=== PATIENT | male | born 1950 | race Caucasian/White ===

== ENCOUNTER 2018-01-02 07:47 | Emergency (ER) | payer OTHER, MEDICAID, SELFPAY ==
[2018-01-02] VITALS (8 sets, daily range): BP systolic 112–145; BP diastolic 54–69; PULSE 62–77; RESP 12–20; TEMP 36.3; O2SAT 97–100; BMI 19.2
--- NOTE | 2018-01-02 08:06 | DI.CT.S_ITS ---
PROCEDURE: CT HEAD/BRAIN WO CON INDICATIONS: dizziness with unsteady on his feet TECHNIQUE: Noncontrast 4.5 mm thick angled axial sections acquired from the foramen magnum to the vertex, with coronal and sagittal reformats. For radiation dose reduction, the following was used: automated exposure control, adjustment of mA and/or kV according to patient size. COMPARISON: [facility], CT, HEAD WITHOUT CONTRAST, 06/14/2014, 15:26. FINDINGS: Image quality: Excellent. CSF spaces: Basal cisterns are patent. No extra-axial fluid collections. The ventricles are symmetric in size and shape. Brain: No intracranial bleeds or masses. There is cerebral volume loss for age, with resultant ventricular and sulcal prominence. There are periventricular and deep white matter chronic small vessel ischemic changes. There is intracranial internal carotid artery atherosclerosis. Skull and face: Calvarium and visualized facial bones appear intact, without suspicious lesions. Sinuses: Visualized sinuses and mastoids are clear. IMPRESSION: No change from the comparison CT from June of 2014. No contraindication to TPA administration is seen. Note: These findings were immediately called to the emergency room physician caring for the patient, at 8:17. Dictated by: Michael Jha M.D. on 01/02/2018 at 8:18 Approved by: Michael Jha M.D. on 01/02/2018 at 8:20
--- NOTE | 2018-01-02 08:17 | ED_ITS ---
HPI - Dizziness General Chief Complaint: Dizziness Stated Complaint: VERTIGO ? Time Seen by Provider: 01/02/18 08:08 Source: patient Mode of arrival: ambulatory Limitations: no limitations History of Present Illness HPI Narrative: patient states that yesterday morning, he woke up from sleep feeling dizzy and nauseated. He states that he felt as though he was listing to the right, and could not get out of bed immediately. He states the symptoms improved, and that he was able to go about his day. However, he does note that he was walking somewhat strangely. He states that he felt fine when he went to bed last night, but then he woke up feeling the same way this morning. This is what prompted him to come to the emergency department. Patient denies focal weakness that is new; he has a history of ongoing left arm weakness and numbness. He is scheduled for left carotid endarterectomy in a couple of weeks. Related Data Home Medications Medication Instructions Recorded Confirmed nitroglycerin [Nitrostat] 0.4 mg SUBLINGUAL PRN #0 09/15/11 01/02/18 Flovent HFA 1 puff INHALATION DIRECTED 01/02/18 01/02/18 albuterol sulfate 1 puff INHALATION PRN PRN 01/02/18 01/02/18 aspirin 81 mg PO DAILY 01/02/18 01/02/18 atorvastatin 80 mg PO BEDTIME 01/02/18 01/02/18 bupropion HCl 150 mg PO BID 01/02/18 01/02/18 Allergies Allergy/AdvReac Type Severity Reaction Status Date / Time lizabeth [LIZABETH] Allergy Unknown Unverified 05/24/17 11:51 Review of Systems Review of Systems All systems reviewed & are unremarkable except as noted in HPI and below Constitutional Denies chills, Denies fever(s), Denies lethargy and Denies weakness Eyes Denies change in vision, Denies eye discharge, Denies irritation and Denies loss of vision ENT Ears, Nose, Mouth, and Throat: Denies change in voice, Reports dizziness, Denies neck pain and Denies sore throat Cardiovascular Denies chest pain, Denies irregular heart rhythm, Denies lightheadedness, Denies palpitations, Denies dyspnea, Denies dyspnea on exertion and Denies orthopnea Respiratory Denies cough, Denies dyspnea, Denies dyspnea on exertion and Denies wheezing Gastrointestinal Gastrointestinal: Denies abdominal pain, Denies change in bowel habits, Denies diarrhea, Denies nausea and Denies vomiting Genitourinary Denies hematuria, Denies flank pain, Denies urinary incontinence and Denies urinary urgency Musculoskeletal Denies neck pain Integumentary/Breasts Denies pruritus, Denies erythema, Denies rash and Denies wounds Neurologic Denies confusion, Reports dizziness, Denies loss of vision and Denies weakness Psychiatric Denies anxiety, Denies confusion, Denies depression, Denies homicidal ideation and Denies suicidal ideation Endocrine Denies palpitations Hematologic/Lymphatic Denies easy bruising Allergic/Immunologic Denies wheezing [facility] Medical History Hyperlipidemia (Acute) TIA (transient ischemic attack) (Acute) Carotid stenosis (Acute) Surgical History No pertinent past surgical history (Acute) Social History Smoking Status: Former smoker Exam Initial Vital Signs Initial Vital Signs: Vital Signs Pulse Rate 68 01/02/18 08:01 Respiratory Rate 18 01/02/18 08:01 Blood Pressure 145/54 H 01/02/18 08:01 Const General: cooperative and well developed Nutritional Appearance: well nourished Orientation: alert, awake, oriented x3 and not confused [facility] Head: normocephalic and atraumatic Ears: external ears normal Nose: external nose normal and No nasal discharge Face and sinus: face symmetric and No dry mucous membranes Mouth: oral mucosae normal and moist mucous membranes Teeth and gingiva: dentition normal Eyes General: appearance normal, both eyes and all related structures Eyelids: eyelids normal Conjunctivae: conjunctivae normal Sclera: sclerae normal Pupils: PERRL EOM: EOM intact bilaterally Neck Neck: normal visual inspection, trachea midline, No lymphadenopathy, No midline deformity and No JVD Lymphatic: No lymphedema Chest Chest: normal inspection of the chest Resp Effort & Inspection: normal respiratory effort, able to speak in complete sentences, no respiratory distress and no use of accessory muscles Auscultation: clear to auscultation bilaterally, no rales, no rhonchi and no wheezes Cardio Rate: regular rate Rhythm: regular rhythm Heart Sounds: no click, no gallops, no murmurs and no rubs Pulses: normal peripheral pulses GI Inspection: non-distended Palpation: soft, no hepatosplenomegaly, No guarding, No pulsatile mass and No tender Back/Spine/Pelvis Back: No CVA tenderness Cervical Spine: cervical ROM normal and No pain with cervical ROM Thoracic/Lumbar Spine: thoracic and lumbar spine normal to inspection Skin General: no rashes or lesions noted, No jaundice and No petechiae Neuro General: alert, oriented x3, gait normal and no focal motor deficits Cranial Nerves: CN's II-XI intact bilaterally Speech: speech normal Motor: muscle tone normal throughout Sensory Exam: no sensory deficits noted Other: NIHSS score=0 at 0825. Extrem General: full ROM, no clubbing, cyanosis or edema, no pedal edema and no calf tenderness Psych Appearance: well kempt Mental Status: mental status grossly normal Attitude: cooperative Thought Content: normal and suicidality Judgment: judgment good Course Course Narrative: Patient was evaluated upon arrival as a code stroke, and sent for CT scan of the brain. This showed no hemorrhage and no new areas of ischemia identified compared with prior study in 2015. Patient was given a dose of aspirin and was worked up with laboratory studies, as well. Nursing staff did report the patient's gait has been worse on arrival than it was at the time of my exam. Orders Ordered: ED Orders 01/02/18 EKG-12 Lead Routine 01/02/18 08:06 CT head/brain wo con Stat Basic Metabolic Panel Stat Complete Blood Count AUTO DIFF Stat Partial Thromboplastin Time Stat Prothrombin Time INR Stat Urine Drug Screen, Rapid Stat Vital Signs - 8 hr 01/02/18 08:01 Pulse Rate 68 Respiratory Rate 18 Blood Pressure 145/54 H MDM - Dizziness Medical Records Attestation: I reviewed the patient's medical records. Lab Data Attestation: I reviewed the patient's lab results. Result diagrams: 01/02/18 08:10 01/02/18 08:10 Lab Results 01/02/18 01/02/18 01/02/18 Range/Units 08:10 08:10 08:10 WBC 9.0 (4.5-11.0) X10^3/uL RBC 4.75 (4.5-5.9) X10^6/uL Hgb 14.6 (13.5-17.5) g/dL Hct 43.5 (41-53) % MCV 91.7 (80-100) fL MCH 30.8 (26-34) PG MCHC 33.6 (30-36) % RDW 14.0 (11.6-14.8) % Plt Count 444 H (150-400) X10^3/uL Neut % (Auto) 65.3 (50-75) % Lymph % (Auto) 21.6 L (25-40) % [place] % (Auto) 6.6 (3-14) % Eos % (Auto) 6.2 H (2-4) % Baso % (Auto) 0.3 (0-2) % Neut # (Auto) 5900 (0056-9581) /uL PT 12.0 (10.1-12.7) SECONDS INR 1.1 (0.9-1.3) APTT 32 (26.4-36.2) SECONDS Sodium 143 (137-145) mmol/L Potassium 4.3 (3.4-5.1) mmol/L Chloride 106 (98-107) mmol/L Carbon Dioxide 26 (22-32) mmol/L BUN 14 (9-20) mg/dL Creatinine 0.80 (0.66-1.25) mg/dL Estimated GFR > 60.0 (>60) mL/min BUN/Creatinine Ratio 17.5 (6-22) Glucose 108 (80-110) mg/dL Calcium 8.9 (8.4-10.2) mg/dL Point of Care Testing Glucose POC 95 Urine Dip Bedside Urine Glucose Negative Bedside Urine Bilirubin - Negative Bedside Urine Ketone - Negative Urine Specific [place] 1.030 Bedside Urine Occult Blood - Negative Bedside Urine pH 6.0 Bedside Urine Protein - Negative Bedside Urine Urobilinogen - Negative Bedside Urine Nitrite - Negative Bedside Urine Leukocytes - Negative Esterase Imaging Data CT scan - head: Attestation: I personally reviewed and interpreted this imaging study as follows: ( Negative) My impression: negative Radiologist's impression: PROCEDURE: CT HEAD/BRAIN WO CON INDICATIONS: dizziness with unsteady on his feet TECHNIQUE: Noncontrast 4.5 mm thick angled axial sections acquired from the foramen magnum to the vertex, with coronal and sagittal reformats. For radiation dose reduction, the following was used: automated exposure control, adjustment of mA and/or kV according to patient size. COMPARISON: [facility], CT, HEAD WITHOUT CONTRAST, 06/14/2014, 15:26. FINDINGS: Image quality: Excellent. CSF spaces: Basal cisterns are patent. No extra-axial fluid collections. The ventricles are symmetric in size and shape. Brain: No intracranial bleeds or masses. There is cerebral volume loss for age , with resultant ventricular and sulcal prominence. There are periventricular and deep white matter chronic small vessel ischemic changes. There is intracranial internal carotid artery atherosclerosis. Skull and face: Calvarium and visualized facial bones appear intact, without suspicious lesions. Sinuses: Visualized sinuses and mastoids are clear. IMPRESSION: No change from the comparison CT from June of 2014. No contraindication to TPA administration is seen. Note: These findings were immediately called to the emergency room physician caring for the patient, at 8:17. Dictated by: Michael Jha M.D. on 01/02/2018 at 8:18 Approved by: Michael Jha M.D. on 01/02/2018 at 8:20 MRI - head: Radiologist's impression: PROCEDURE: MR HEAD/BRAIN WO CON INDICATIONS: stroke TECHNIQUE: Noncontrast axial T1 spin echo, axial T2 fast spin echo, sagittal and axial FLAIR, coronal T2 fast spin echo, axial gradient echo, axial diffusion and ADC through the brain. COMPARISON: None. FINDINGS: Image quality: Excellent. CSF Spaces: Basal cisterns are patent. No extra-axial fluid collections. Ventricles are normal in size and shape. Brain: No intracranial masses or hemorrhage. Henry/white matter interface is normal. Brainstem appears normal. Diffusion-weighted images demonstrate no acute ischemic insult. No chronic ischemic insults. Normal intravascular flow voids are present. Skull and face: Calvarium has normal marrow signal. Orbits appear normal. Sinuses: Sinuses and mastoids are clear except for significant mucosal thickening and mucous retention cysts within the maxillary sinuses bilaterally greater on the left than the right. IMPRESSION: No acute or subacute ischemic injury is found throughout the brain parenchyma. No intracranial hemorrhage is suspected nor is there a mass lesion or mass effect. Note is made of asymmetric bilateral maxillary sinusitis, chronic in appearance and greater on the left than the right. Dictated by: Michael Jha M.D. on 01/02/2018 at 11:41 Approved by: Michael Jha M.D. on 01/02/2018 at 11:42 ECG Data Attestation: I personally reviewed and interpreted this ECG as follows: ( See below) Interpretation: 12 lead EKG performed on January 02, 2018 at 7:56 a.m.: Regular ventricular rhythm with a rate of 66 beats per minute . Interval 129 millisecond QRS duration 93 millisecond QTC interval 400 millisecond axis normal no ST T wave abnormalities in summary, normal sinus rhythm with possible right ventricular conduction delay; borderline EKG as interpreted by ED MD. MDM Narrative Medical decision making narrative: the patient's workup was entirely negative. I have discussed with the patient that it is still very important that he gets his carotid endarterectomy done, as this may be responsible for some of the symptoms he has been having, even though he has not end up with actual ischemia. Patient is already on aspirin and statins and he should continue to take these. We have discussed the usual indications for return. Discharge Plan Departure Patient Disposition: Home Clinical Impression: Dizziness Discharge Date/Time: 01/02/18 12:39 Interventions: ED Discharge Assessment Last Done: 01/02/18 12:40 Instructions: DI for Dizziness-Nonvertigo Activity Restrictions/Additional Instructions: Your labs, EKG, head CT, and MRI of the brain all looked good. There is evidence of old, small strokes, but nothing that is new. Please continue your plans to have your carotid artery surgery in the near future. Please also continue home medications, especially the aspirin and cholesterol medication. Prescriptions: No Action nitroglycerin [Nitrostat] 0.4 MG tablet, sublingual 0.4 mg Sublingual PRN Qty: 0 RF: 0 bupropion HCl 150 mg Tablet Sustained-Release 12 Hr 150 mg PO BID RF: 0 atorvastatin 80 mg Tablet 80 mg PO BEDTIME RF: 0 aspirin 81 mg Tablet,Delayed Release (Dr/Ec) 81 mg PO DAILY RF: 0 Flovent HFA 1 puff Inhalation DIRECTED RF: 0 albuterol sulfate 90 mcg/actuation Hfa Aerosol Inhaler 1 puff Inhalation PRN PRN (Reason: Shortness Of Breath) RF: 0
[2018-01-02 08:22] LABS: Add Manual Diff / Slide Review NO; Basophils Percent Auto 0.3 % (0-2); Eosinophils Percent Auto 6.2 % (2-4); Hematocrit 43.5 % (41-53); Hemoglobin 14.6 g/dL (13.5-17.5); Lymphocytes Percent Auto 21.6 % (25-40); Mean Corpuscular HGB Conc 33.6 % (30-36); Mean Corpuscular Hemoglobin 30.8 PG (26-34); Mean Corpuscular Volume 91.7 fL (80-100); Monocytes Percent Auto 6.6 % (3-14); Neutrophils Absolute Auto 5900 /uL (3000-5900); Neutrophils Percent Auto 65.3 % (50-75); Platelet Count 444 X10^3/uL (150-400); Red Blood Cell Count 4.75 X10^6/uL (4.5-5.9)
[2018-01-02 08:25] LABS: INR 1.1 (0.9-1.3)
[2018-01-02 08:28] LABS: PTT Partial Thromboplastin Tim 32 SECONDS (26.4-36.2)
[2018-01-02 08:29] LABS: BUN Creatinine Ratio 17.5 (6-22); Blood Urea Nitrogen 14 mg/dL (9-20); Calcium 8.9 mg/dL (8.4-10.2); Carbon Dioxide 26 mmol/L (22-32); Chloride 106 mmol/L (98-107); Estimated Glomerular Filt Rate > 60.0 mL/min (>60); Glucose 108 mg/dL (80-110); HEMOLYSIS < 15 (0-50); Potassium 4.3 mmol/L (3.4-5.1); Sodium 143 mmol/L (137-145)
--- NOTE | 2018-01-02 10:04 | DI.MRI.S_ITS ---
PROCEDURE: MR HEAD/BRAIN WO CON INDICATIONS: stroke TECHNIQUE: Noncontrast axial T1 spin echo, axial T2 fast spin echo, sagittal and axial FLAIR, coronal T2 fast spin echo, axial gradient echo, axial diffusion and ADC through the brain. COMPARISON: None. FINDINGS: Image quality: Excellent. CSF Spaces: Basal cisterns are patent. No extra-axial fluid collections. Ventricles are normal in size and shape. Brain: No intracranial masses or hemorrhage. [place]/white matter interface is normal. Brainstem appears normal. Diffusion-weighted images demonstrate no acute ischemic insult. No chronic ischemic insults. Normal intravascular flow voids are present. Skull and face: Calvarium has normal marrow signal. Orbits appear normal. Sinuses: Sinuses and mastoids are clear except for significant mucosal thickening and mucous retention cysts within the maxillary sinuses bilaterally greater on the left than the right. IMPRESSION: No acute or subacute ischemic injury is found throughout the brain parenchyma. No intracranial hemorrhage is suspected nor is there a mass lesion or mass effect. Note is made of asymmetric bilateral maxillary sinusitis, chronic in appearance and greater on the left than the right. Dictated by: Michael Jha M.D. on 01/02/2018 at 11:41 Approved by: Michael Jha M.D. on 01/02/2018 at 11:42
== END 2018-01-02 12:39 | disposition home or self-care (01) ==
PROVIDERS: Emergency Provider Emergency Medicine
DX: R42 Dizziness and giddiness (principal)
CPT/HCPCS: 36415; 70450; 70551; 80048; 81003; 82962; 85025; 85610; 85730; 93005; 99283; 99285

== ENCOUNTER → 2018-08-27 06:54 | Outpatient (CLI) | payer OTHER, MEDICAID, SELFPAY ==
[2018-08-27 09:04] LABS: Alanine Aminotransferase 18 IU/L (21-72); Albumin 4.1 g/dL (3.5-5.0); Albumin Globulin Ratio 1.5 (1.0-2.8); Alkaline Phosphatase 76 U/L (38-126); Aspartate Aminotransferase 23 IU/L (17-59); BUN Creatinine Ratio 24.4 (6-22); Bilirubin Total 0.8 mg/dL (0.2-1.3); Blood Urea Nitrogen 22 mg/dL (9-20); Calcium 9.2 mg/dL (8.4-10.2); Carbon Dioxide 27 mmol/L (22-32); Chloride 107 mmol/L (98-107); Cholesterol 209 mg/dL (140-199); Estimated Glomerular Filt Rate > 60.0 mL/min (>60); Globulin 2.7 g/dL (1.7-4.1); Glucose 96 mg/dL (80-110); HDL Cholesterol 41 mg/dL (40-60); HEMOLYSIS < 15 (0-50); LDL Cholesterol Calculated 148 mg/dL (<100); Potassium 4.2 mmol/L (3.4-5.1); Sodium 143 mmol/L (137-145); Total Protein 6.8 g/dL (6.3-8.2); Triglycerides 98 mg/dL (35-150)
[2018-08-27 09:30] LABS: Prostate Specific Antigen Scrn 0.892 ng/mL (0.1-4.0); Thyroid Stimulating Hormone 3.24 uIU/mL (0.47-4.68)
[2018-08-27 09:54] LABS: Hep C Virus Ab w/Reflex Quant NEGATIVE s/c (NEGATIVE)
== END ==
PROVIDERS: Visit Provider Student in an Organized Health Care Education/Training Program
DX: E78.5 Hyperlipidemia, unspecified (principal); I65.29 Occlusion and stenosis of unspecified carotid artery; R07.9 Chest pain, unspecified; R97.20 Elevated prostate specific antigen [PSA]; E78.2 Mixed hyperlipidemia; Z12.5 Encounter for screening for malignant neoplasm of prostate
CPT/HCPCS: 36415; 80053; 80061; 84443; 86803; G0103

== ENCOUNTER → 2020-09-02 11:31 | Outpatient (CLI) | payer OTHER, MEDICAID, SELFPAY ==
[2020-09-02 13:41] LABS: COVID19 -Nasal RAPID Negative (Negative)
== END ==
PROVIDERS: Visit Provider Physician Assistant
DX: Z01.812 Encounter for preprocedural laboratory examination (principal); Z20.822 Contact with and (suspected) exposure to COVID-19
CPT/HCPCS: 87635

== ENCOUNTER 2020-09-04 12:07 | Day surgery (SDC) | payer OTHER, MEDICAID, SELFPAY ==
[2020-09-04] VITALS (9 sets, daily range): BP systolic 90–114; BP diastolic 41–61; PULSE 69–81; RESP 12–18; TEMP 36.1–36.4; O2SAT 95–99; BMI 19.0
--- NOTE | 2020-09-04 | PATH_ITS ---
[facility] Accession Number: [id number] . 01 Material submitted: . rectum - RECTAL POLYP . 01 Clinical history: . RECTAL POLYP - LYMPHOID AGGREGATE . 02 Diagnosis: Rectal Polyp, Biopsy: Hyperplastic polyp. [facility] 09/09/2020 1520 Local . 02 Electronically signed: . Gary Bradshaw MD, PhD, Pathologist NPI- [id number] . 01 Gross description: . RECTAL POLYP: Received in formalin is 1 fragment(s) of melgar, soft tissue measuring 0.4 x 0.2 x 0.2 cm submitted entirely in 1 cassette(s) /THERESA 09/05/2020 0456 Local . 02 Pathologist provided ICD-10: K62.1 . 02 CPT . 460644 Performed at: 01 [facility] [address] [id number] MD Lewis Chau MD Phone: [phone] Performed at: 02 [facility] [address] [place], [place] [id number] MD Ailyn Toledo MD Phone: [phone]
--- NOTE | 2020-09-04 12:14 | PM.HP.1 ---
History of Present Illness History of Present Illness Date Patient Seen: 09/04/20 Chief complaint: SCREENING COLONOSCOPY Narrative: 69 year old male comes in today for consideration of a screening colonoscopy. Last colonoscopy in 2010, tortuous colon, random biopsies at 15, 20, 50 cm were all benign lymphoid aggregates or hyperplastic polyps, 10 year recall. He did have a partial sigmoid colectomy in 2011 secondary to recurrent diverticulitis. There have been no lower GI symptoms suggesting disease such as change in bowel habits, bleeding, abdominal pain or anemia. There's been no family history of colon cancer or colon polyps. Overall health issues have been stable, including no major cardiac events for at least 6 weeks. PCP: Dr. 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, involved margins Past Surgical History: TURP 11/21/08 inginal hernia bilateral repair 08/25/00 Partial sigmoid colectomy for recurrent diverticulitis, 09/15/11 Appendectomy 09/15/11 Carotid enterectomy, left, 01/28/2018 Colonoscopy, 2011, 10-year recall Family History: Reviewed history from 09/04/2018 and no changes required: Father: at 65, [place] (smoker and drinker) Mother: Arthritis, Heart Disease, Esophageal cancer Siblings: Alcohol Brother: from brain tumor Social History: Reviewed history from 09/04/2018 and no changes required: Marital Status: Single Children: Occupation:Disabilitity Household Members: Lives alone Education: 12 + 2 [employer] [place] [employer] [facility]. Born [place]. Dropped out of high school in 8th grade, joined [employer] at age17. Received high school equivalency in [employer], later trained as a microbiology technician. [place] moved [place] in the mid-1970s. Has lived in [place] since 1995, lives in his van. Medical contact: Kg Arellano, (friend) Code: Full with no heroic measures Alcohol drinks/day: 0 Caffeine use/day: 4-5 Type of Exercise: no Guns in home: no Dental Care w/in 6 mos.: no Sun Exposure: frequently Seat Belt Use: yes Smoking Status: current every day smoker Tobacco Type: cigarettes Counseled to Quit Smoking: yes Packs/Day: 1 Drug Use: never HIV High Risk Behavior: no Patient History Medical History (Updated 09/04/20 @ 13:41 by Mariusz Gordon RN) BPH (benign prostatic hyperplasia) Carotid stenosis Cervical radiculitis Claudication COPD (chronic obstructive pulmonary disease) Degenerative disc disease, lumbar Depression Diverticulitis Hyperlipidemia Left carotid artery stenosis PTSD (post-traumatic stress disorder) Rectal bleeding Squamous cell carcinoma in situ TIA (transient ischemic attack) Tobacco use disorder Surgical History (Updated 09/04/20 @ 13:38 by Mariusz Gordon RN) History of colectomy History of inguinal hernia repair, bilateral History of prostate biopsy Hx of transurethral resection of prostate Family & Social History Tobacco & Substance use: Smoking Status Former smoker Meds Home Medications and Allergies Home Medications Medication Instructions Recorded Confirmed Type nitroglycerin 0.4 mg sublingual 0.4 mg SUBLINGUAL PRN #0 09/15/11 01/02/18 History tablet (Nitrostat) Flovent HFA 1 puff INHALATION DIRECTED 01/02/18 01/02/18 History albuterol sulfate 90 mcg/actuation 1 puff INHALATION PRN PRN 01/02/18 01/02/18 History aerosol inhaler aspirin 81 mg tablet,delayed 81 mg PO DAILY 01/02/18 01/02/18 History release atorvastatin 80 mg tablet 80 mg PO BEDTIME 01/02/18 01/02/18 History bupropion HCl 150 mg tablet,12 hr 150 mg PO BID 01/02/18 01/02/18 History sustained-release Allergies Allergy/AdvReac Type Severity Reaction Status Date / Time lizabeth [LIZABETH] Allergy Unknown Verified 09/04/20 13:41 Review of Systems Review of Systems Narrative: 10 point review systems completed and found to be noncontributory except for items mentioned in HPI. Exam Narrative Exam Narrative: GENERAL: Alert and oriented, appearing stated age and in no acute distress. HEENT: Head normocephalic/atraumatic. LUNGS: Clear to ausculation bilaterally, no wheezes, rhonchi or rales. CV: Normal S1 and S2 with regular rate and rhythm, no audible murmurs, rubs or gallops. ABDOMEN: Soft, non-tender, non-distended, no organomegaly. Positive bowel sounds. EXTREMITIES: No clubbing, cyanosis, or edema. NEURO: Cranial nerves II through XII grossly intact, no focal deficits. PSYCH: Alert and oriented x 3. SKIN: No concerning lesions. Assessment & Plan Assessment & Plan narrative: 1. Screening for colon cancer 2. History of partial sigmoid colectomy secondary to chronic diverticulitis 3. History of hyperplastic polyps. Plan for colonoscopy. The nature and character of the procedure as well as anticipated results were discussed. The possibility of not completing the procedure was also discussed. Possible complications including aspiration pneumonia, bleeding, perforation and reaction to medications either for sedation or preparation and missed lesions were discussed. Questions were answered and proceeding to the colonoscopy was elected. Informed consent signed.
--- NOTE | 2020-09-04 12:28 | PM.OP.ENDO ---
Operative Date/Time/Diagnoses Date of procedure: 09/04/20 Procedure Notes SCOAP/Timeout: 2:01 p.m. Procedure in detail: ENDOSCOPIST: Opal Weiss MD Sedation RN: Veronica Novoa RN Sedation start time: 2:02 p.m. Sedation end time: 2:23 p.m. PROCEDURE: Colonoscopy with biopsy, cold INDICATIONS: 1. Screening for colon cancer 2. History of sigmoid colectomy 3. History of hyperplastic polyps MEDICATION: Levsin 0.125 mg sublingual, incremental doses of Versed and fentanyl until appropriate level sedation achieved. ASA CLASS: 2 CECAL WITHDRAWAL TIME: 13 minutes COMPLICATIONS: None. EXTENT OF PROCEDURE: Cecum. QUALITY OF PREP: Good with portions of liquid stool. PROCEDURE: Prior to insertion of the colonoscope, a digital rectal examination was accomplished with circumferential palpation of the distal rectal mucosa without significant findings being noted. The high-definition pediatric colonoscope was passed into the rectum in the usual fashion and advanced over to the cecum without difficulty. The ileocecal valve, appendiceal stoma, and medial wall all could be inspected and no abnormalities were seen. ASCENDING COLON: As the colonoscope was withdrawn, care was taken to expose and inspect the haustral folds and no abnormalities were seen. HEPATIC FLEXURE: Normal, no polyps, diverticula or other abnormalities. TRANSVERSE COLON: Normal, no polyps, diverticula or other abnormalities. LEFT COLON: Normal, no polyps, diverticula or other abnormalities. Anastomosis from sigmoid colectomy well-healed. RECTUM: Abnormal mucosa consistent with lymphoid aggregate, 5 mm, seen and targeted biopsy taken x1. J maneuver was produced. There was no significant perianal disease. The J maneuver was broken. The remainder of the rectum was inspected and there was external hemorrhoid disease. The scope was withdrawn. IMPRESSION: 1. Abnormal mucosa, rectum, 5 mm, targeted biopsy x1 2. Otherwise, normal colonoscopy 3. External hemorrhoid disease PLAN: 1. Follow-up in clinic status post pathology results. The possibility of a missed lesion including a malignancy has been discussed with the patient previously. Potential alarm symptoms have been discussed and should be reported immediately.
[2020-09-04] MEDS: HYOSCYAMINE 0.125 MG TABLET PO (13:27)
[2020-09-04] MEDS: LACTATED RINGERS 1,000 ML 200 ML IV (13:28)
[2020-09-04] MEDS: fentaNYL 250 MCG/5 ML INJ IV (14:02)
[2020-09-04] MEDS: MIDAZOLAM 5 MG/5 ML VIAL IV (14:10)
== END 2020-09-04 15:40 | disposition home or self-care (01) ==
PROVIDERS: PCP Student in an Organized Health Care Education/Training Program; Referring Provider Student in an Organized Health Care Education/Training Program; Visit Provider Student in an Organized Health Care Education/Training Program
PROC: 0DJD8ZZ Inspection of Lower Intestinal Tract, Via Natural or Artificial Opening Endoscopic (ICD-10-PCS; CPT 45378; principal; 2020-09-04 13:45)
DX: Z12.11 Encounter for screening for malignant neoplasm of colon (principal); Z86.010 Personal history of colon polyps; Z90.49 Acquired absence of other specified parts of digestive tract; J44.9 Chronic obstructive pulmonary disease, unspecified; F43.10 Post-traumatic stress disorder, unspecified; E78.5 Hyperlipidemia, unspecified; F17.210 Nicotine dependence, cigarettes, uncomplicated; K64.4 Residual hemorrhoidal skin tags; K62.1 Rectal polyp
CPT/HCPCS: 45380; J2250; J3010

== ENCOUNTER 2022-10-03 14:18 | Emergency (ER) | payer OTHER, MEDICAID, SELFPAY ==
[2022-10-03] VITALS (16 sets, daily range): BP systolic 125–167; BP diastolic 55–71; PULSE 68–88; RESP 13–35; TEMP 36.6; O2SAT 96–99; BMI 19.4
--- NOTE | 2022-10-03 14:29 | DI.RAD.S_ITS ---
PROCEDURE: XR CHEST 1V INDICATIONS: Possible stroke TECHNIQUE: One view of the chest was acquired. COMPARISON: [facility], , CHEST 2 VIEW, 06/25/2016, 2:01. FINDINGS: Surgical changes and devices: None. Lungs and pleura: Right middle lung opacity in the perihilar region, new since prior. No pleural effusions or pneumothorax. Mediastinum: Mediastinal contours appear normal. Heart size is normal. Bones and chest wall: No suspicious bony lesions. Overlying soft tissues appear unremarkable. IMPRESSION: Single AP view radiograph of the chest demonstrating dense opacity in the right mid lung. Findings may represent mass versus infection. Dictated by: Michell Chahal M.D. on 10/03/2022 at 15:36 Approved by: Michell Chahal M.D. on 10/03/2022 at 15:40
--- NOTE | 2022-10-03 14:31 | DI.CT.S_ITS ---
PROCEDURE: CT HEAD/BRAIN WO CON INDICATIONS: dizzy x 4 days TECHNIQUE: Noncontrast 4.5 mm thick angled axial sections acquired from the foramen magnum to the vertex, with coronal and sagittal reformats. For radiation dose reduction, the following was used: automated exposure control, adjustment of mA and/or kV according to patient size. COMPARISON: [facility], MR, MR HEAD/BRAIN WO CON, 01/02/2018, 11:07. [facility], CT, CT HEAD/BRAIN WO CON, 01/02/2018, 7:55. FINDINGS: Image quality: Excellent. CSF spaces: Basal cisterns are patent. No extra-axial fluid collections. The ventricles are symmetric in size and shape. Brain: No intracranial bleeds or masses. There is cerebral volume loss for age, with resultant ventricular and sulcal prominence. There are periventricular and deep white matter chronic small vessel ischemic changes. There is intracranial internal carotid artery atherosclerosis. Skull and face: Calvarium and visualized facial bones appear intact, without suspicious lesions. Sinuses: Visualized sinuses and mastoids are clear. IMPRESSION: Unremarkable noncontrast head CT for age, stable from prior. Dictated by: Tyler Elam M.D. on 10/03/2022 at 14:32 Approved by: Tyler Elam M.D. on 10/03/2022 at 14:33
[2022-10-03 14:43] LABS: Add Manual Diff / Slide Review NO; Basophils Absolute Auto 100 /uL (0-100); Eosinophils Absolute Auto 300 /uL (0-450); Eosinophils Percent Auto 6.1 % (2-4); Hematocrit 39.2 % (41-53); Hemoglobin 13.5 g/dL (13.5-17.5); Lymphocytes Absolute Auto 1800 /uL (1100-4500); Lymphocytes Percent Auto 33.5 % (25-40); Mean Corpuscular HGB Conc 34.4 % (30-36); Mean Corpuscular Hemoglobin 32.6 PG (26-34); Mean Corpuscular Volume 94.8 fL (80-100); Monocytes Absolute Auto 100 /uL (0-900); Monocytes Percent Auto 1.6 % (3-14); Neutrophils Absolute Auto 3100 /uL (1500-7000); Neutrophils Percent Auto 56.8 % (50-75); Platelet Count 345 X10^3/uL (150-400); Red Blood Cell Count 4.14 X10^6/uL (4.5-5.9); Red Cell Distribution Width 13.7 % (11.6-14.8); White Blood Cell Count 5.5 X10^3/uL (4.5-11.0)
--- NOTE | 2022-10-03 14:50 | PC.NURSE ---
Pt reporting intermittent left arm weakness and numbness for the past 4 days and some double/blurred vision. Pt also reports he has had chest pain/pressure in the past, but currently denies any chest pain or SOB. Daily smoker.
[2022-10-03 14:52] LABS: INR 1.1 (0.9-1.3); Prothrombin Time 12.6 SECONDS (10.1-12.7)
[2022-10-03 14:54] LABS: PTT Partial Thromboplastin Tim 30 SECONDS (26-36)
[2022-10-03 14:59] LABS: Alanine Aminotransferase 13 IU/L (<50); Albumin 3.9 g/dL (3.5-5.0); Albumin Globulin Ratio 1.4 (1.0-2.8); Alkaline Phosphatase 68 U/L (38-126); Aspartate Aminotransferase 17 IU/L (17-59); BUN Creatinine Ratio 15.9 (6-22); Bilirubin Total 0.5 mg/dL (0.2-1.3); Blood Urea Nitrogen 14 mg/dL (9-20); Calcium 9.2 mg/dL (8.4-10.2); Carbon Dioxide 27 mmol/L (22-32); Chloride 105 mmol/L (98-107); Creatine Kinase 30 U/L (55-170); Estimated Glomerular Filt Rate > 60 mL/min (>60); Globulin 2.8 g/dL (1.7-4.1); Glucose 113 mg/dL (80-110); HEMOLYSIS < 15 (0-50); Magnesium 2.1 mg/dL (1.6-2.3); Potassium 4.1 mmol/L (3.4-5.1); Sodium 138 mmol/L (137-145); Total Protein 6.7 g/dL (6.3-8.2)
--- NOTE | 2022-10-03 15:04 | ED.DIZZY ---
HPI - Dizziness <Ida Clay MD - Last Filed: 10/06/22 07:27> General Chief Complaint: Dizziness Stated Complaint: Dizzy, Vertigo, L arm numb Time Seen by Provider: 10/03/22 14:38 Source: patient Mode of arrival: Ambulatory History of Present Illness HPI Narrative: 72-year-old male with history of COPD, active tobacco use, previous history of carotid endarterectomy, TIA presenttent weakness and numbness of his left arm for ?years?. Patient states that symptoms seem to worsen whenever he changes position, i.e from laying to sitting or from sitting to standing. Patient drove himself to the emergency department, he states that when he was driving he felt normal, but when he got up from the car to walk to the front doors he had symptoms again. He states that while sitting in the ED bed he is asymptomatic. Care of patient signed to oncoming provider at 1545. Final dispo pending imaging and final evaluation Related Data Home Medications Medication Instructions Recorded Confirmed nitroglycerin 0.4 mg sublingual 0.4 mg sublingual PRN ##0 09/15/11 09/04/20 tablet (Nitrostat) Flovent HFA 1 puff inhalation DIRECTED 01/02/18 09/04/20 albuterol sulfate 90 mcg/actuation 1 puff inhalation PRN PRN 01/02/18 09/04/20 aerosol inhaler Shortness Of Breath cyclobenzaprine 5 mg tablet 5 mg PO PRN PRN MUSCLE SPASMS 09/04/20 09/04/20 Allergies Allergy/AdvReac Type Severity Reaction Status Date / Time lizabeth [LIZABETH] Allergy Unknown Verified 09/04/20 13:41 Review of Systems <Ida Clay MD - Last Filed: 10/06/22 07:27> Constitutional Constitutional: Denies difficulty sleeping, Denies fatigue, Denies fever(s), Denies headache(s), Denies poor appetite and Denies weakness Eyes Eyes: Denies loss of vision ENT Ears, Nose, Mouth, and Throat: Reports dizziness and Denies headache(s) Cardiovascular Cardiovascular: Denies chest pain, Denies syncope, Reports lightheadedness, Denies palpitations, Denies dyspnea, Denies dyspnea on exertion and Denies orthopnea Respiratory Respiratory: Denies dyspnea and Denies dyspnea on exertion Gastrointestinal Gastrointestinal: Denies abdominal pain, Denies nausea and Denies vomiting Musculoskeletal Musculoskeletal: Denies abnormal gait Neurologic Neurologic: Denies abnormal gait, Reports dizziness, Denies syncope, Denies headache(s), Denies lack of coordination, Reports localized weakness (Reports LUE weakness, chronic), Denies loss of vision, Denies other visual disturbances, Denies convulsions and Denies weakness Endocrine Endocrine: Denies fatigue and Denies palpitations Patient History <Ida Clay MD - Last Filed: 10/06/22 07:27> Medical History (Updated 10/03/22 @ 17:54 by Tonya Carranza DO) BPH (benign prostatic hyperplasia) Carotid stenosis Cervical radiculitis Claudication COPD (chronic obstructive pulmonary disease) Degenerative disc disease, lumbar Depression Diverticulitis Hyperlipidemia Left carotid artery stenosis PTSD (post-traumatic stress disorder) Rectal bleeding Squamous cell carcinoma in situ TIA (transient ischemic attack) Tobacco use disorder Surgical History (Updated 09/04/20 @ 13:38 by Mariusz Gordon RN) History of colectomy History of inguinal hernia repair, bilateral History of prostate biopsy Hx of transurethral resection of prostate Social History household members: none Smoking Status: Current every day smoker alcohol intake: never Smoking Status: Current every day smoker tobacco type: cigarettes Substance Use Type: does not use Exam <Ida Clay MD - Last Filed: 10/06/22 07:27> Initial Vital Signs Initial Vital Signs: Vital Signs Pulse Rate 85 10/03/22 14:24 Pulse Oximetry 97 10/03/22 14:24 Const: Well-nourished, Well-developed, appears stated age Eyes: PERRL, EOMI, conjunctiva normal ENT: Atraumatic, dentition normal, mucous membranes moist Cardiac: regular rate, regular rhythm RESP: unlabored, clear bilaterally, no wheezing GI: Atraumatic, nontender, nondistended, no rebound, no guarding MSK: Atraumatic, full range of motion, pulses equal Skin: Warm, Dry, intact, no rashes Neuro: AO x3, CN II-XII grossly intact, moves all extremities, NIH 0 Psych: affect normal, mood normal, not suicidal, not homicidal <Tonya Carranza DO - Last Filed: 10/04/22 07:10> Initial Vital Signs Initial Vital Signs: Vital Signs Pulse Rate 85 10/03/22 14:24 Pulse Oximetry 97 10/03/22 14:24 Scores <Ida Clay MD - Last Filed: 10/06/22 07:27> GCS Citation: 15 NIH Stroke Scale Total NIH Stroke scale score: 0 Citation:: NIH 0 <Tonya Carranza DO - Last Filed: 10/04/22 07:10> NIH Stroke Scale Level of Conciousness: Alert, keenly responsive Ask month/age: Answers both questions correctly. Open/close eyes, close hand: Performs both tasks correctly Best gaze horizontal: Normal Visual jefferson: No visual loss Facial palsy: Normal symetrical movement Left arm drift: No drift for full 10 sec Right arm drift: No drift for full 10 sec Left leg drift: No drift for full 5 sec Right leg drift: No drift for full 5 sec Limb ataxia: Absent Sensory on face/arms/legs: Normal, no sensory loss Best language: No aphasia, normal Dysarthria: Normal Extinction or inattention: No abnormality Total NIH Stroke scale score: 0 Course <Ida Clay MD - Last Filed: 10/06/22 07:27> Orders Ordered: Discontinued Medications Aspirin (Aspirin 81 Mg Chew Tab) 324 mg PO NOW ONE Stop: 10/03/22 17:45 Last Admin: 10/03/22 17:49 Dose: 324 mg Documented By: SIXTO Sodium Chloride (Normal Saline 0.9%) 500 mls @ 1,000 mls/hr IV BOLUS ONE Stop: 10/03/22 15:47 Last Infusion: 10/03/22 17:46 Dose: 0 mls/hr Documented By: Admin: 10/03/22 15:35 Dose: 1,000 mls/hr Documented By: SIXTO Ondansetron HCl (Ondansetron 4 Mg/2 Ml Inj) 4 mg IV NOW PRN PRN Reason: Nausea And Vomiting Ondansetron HCl (Ondansetron 4 Mg Odt) 4 mg SL NOW PRN PRN Reason: Nausea And Vomiting Vital Signs Vital signs: Vital Signs - 8 hr 10/03/22 14:26 10/03/22 14:24 10/03/22 14:25 Temperature 97.8 F Pulse Rate 86 85 82 Pulse Rate [Orthostatic Lying] Pulse Rate [Orthostatic Sitting] Pulse Rate [Orthostatic Standing] Respiratory Rate 16 Blood Pressure 167/71 H Blood Pressure [Orthostatic Lying] Blood Pressure [Orthostatic Sitting] Blood Pressure [Orthostatic Standing] Pulse Oximetry 96 97 98 Oxygen Delivery Method Room Air 10/03/22 14:25 10/03/22 14:30 10/03/22 14:30 Temperature Pulse Rate 83 Pulse Rate [Orthostatic Lying] Pulse Rate [Orthostatic Sitting] Pulse Rate [Orthostatic Standing] Respiratory Rate Blood Pressure 167/71 H 145/55 H Blood Pressure [Orthostatic Lying] Blood Pressure [Orthostatic Sitting] Blood Pressure [Orthostatic Standing] Pulse Oximetry 98 Oxygen Delivery Method 10/03/22 15:03 Temperature Pulse Rate Pulse Rate [Orthostatic Lying] 76 Pulse Rate [Orthostatic Sitting] 74 Pulse Rate [Orthostatic Standing] 79 Respiratory Rate Blood Pressure Blood Pressure [Orthostatic Lying] 125/60 Blood Pressure [Orthostatic Sitting] 139/64 Blood Pressure [Orthostatic Standing] 137/57 L Pulse Oximetry Oxygen Delivery Method <Tonya Carranza, - Last Filed: 10/04/22 07:10> Orders Ordered: Discontinued Medications Aspirin (Aspirin 81 Mg Chew Tab) 324 mg PO NOW ONE Stop: 10/03/22 17:45 Last Admin: 10/03/22 17:49 Dose: 324 mg Documented By: SIXTO Sodium Chloride (Normal Saline 0.9%) 500 mls @ 1,000 mls/hr IV BOLUS ONE Stop: 10/03/22 15:47 Last Infusion: 10/03/22 17:46 Dose: 0 mls/hr Documented By: Admin: 10/03/22 15:35 Dose: 1,000 mls/hr Documented By: SIXTO Ondansetron HCl (Ondansetron 4 Mg/2 Ml Inj) 4 mg IV NOW PRN PRN Reason: Nausea And Vomiting Ondansetron HCl (Ondansetron 4 Mg Odt) 4 mg SL NOW PRN PRN Reason: Nausea And Vomiting Vital Signs Vital signs: Vital Signs - 8 hr 10/03/22 14:26 10/03/22 14:24 10/03/22 14:25 Temperature 97.8 F Pulse Rate 86 85 82 Pulse Rate [Orthostatic Lying] Pulse Rate [Orthostatic Sitting] Pulse Rate [Orthostatic Standing] Respiratory Rate 16 Blood Pressure 167/71 H Blood Pressure [Orthostatic Lying] Blood Pressure [Orthostatic Sitting] Blood Pressure [Orthostatic Standing] Pulse Oximetry 96 97 98 Oxygen Delivery Method Room Air 10/03/22 14:25 10/03/22 14:30 10/03/22 14:30 Temperature Pulse Rate 83 Pulse Rate [Orthostatic Lying] Pulse Rate [Orthostatic Sitting] Pulse Rate [Orthostatic Standing] Respiratory Rate Blood Pressure 167/71 H 145/55 H Blood Pressure [Orthostatic Lying] Blood Pressure [Orthostatic Sitting] Blood Pressure [Orthostatic Standing] Pulse Oximetry 98 Oxygen Delivery Method 10/03/22 15:03 Temperature Pulse Rate Pulse Rate [Orthostatic Lying] 76 Pulse Rate [Orthostatic Sitting] 74 Pulse Rate [Orthostatic Standing] 79 Respiratory Rate Blood Pressure Blood Pressure [Orthostatic Lying] 125/60 Blood Pressure [Orthostatic Sitting] 139/64 Blood Pressure [Orthostatic Standing] 137/57 L Pulse Oximetry Oxygen Delivery Method MDM - Dizziness <Ida Clay MD - Last Filed: 10/06/22 07:27> Differential Diagnosis Differential diagnosis: Likely benign paroxysmal positional vertigo, orthostatic hypotension and cerebrovascular accident Condition is:: Well Controlled Lab Data 10/03/22 14:35 10/03/22 14:35 Labs: Lab Results 10/03/22 10/03/22 10/03/22 Range/Units 14:35 14:35 14:35 WBC 5.5 (4.5-11.0) X10^3/uL RBC 4.14 L (4.5-5.9) X10^6/uL Hgb 13.5 (13.5-17.5) g/dL Hct 39.2 L (41-53) % MCV 94.8 (80-100) fL MCH 32.6 (26-34) PG MCHC 34.4 (30-36) % RDW 13.7 (11.6-14.8) % Plt Count 345 (150-400) X10^3/uL Neut % (Auto) 56.8 (50-75) % Lymph % (Auto) 33.5 (25-40) % Stanley % (Auto) 1.6 L (3-14) % Eos % (Auto) 6.1 H (2-4) % Baso % (Auto) 2.0 (0-2) % Neut # (Auto) 3100 (8539-8029) /uL Lymph # (Auto) 1800 (1227-5502) /uL Stanley # (Auto) 100 (0-900) /uL Eos # (Auto) 300 (0-450) /uL Baso # (Auto) 100 (0-100) /uL PT 12.6 (10.1-12.7) SECONDS INR 1.1 (0.9-1.3) APTT 30 (26-36) SECONDS Sodium 138 (137-145) mmol/L Potassium 4.1 (3.4-5.1) mmol/L Chloride 105 (98-107) mmol/L Carbon Dioxide 27 (22-32) mmol/L BUN 14 (9-20) mg/dL Creatinine 0.88 (0.66-1.25) mg/dL Estimated GFR > 60 (>60) mL/min BUN/Creatinine Ratio 15.9 (6-22) Glucose 113 H (80-110) mg/dL Calcium 9.2 (8.4-10.2) mg/dL Magnesium 2.1 (1.6-2.3) mg/dL Total Bilirubin 0.5 (0.2-1.3) mg/dL AST 17 (17-59) IU/L ALT 13 (<50) IU/L Alkaline Phosphatase 68 (38-126) U/L Total Creatine Kinase 30 L (55-170) U/L Troponin I < 0.012 (0.01-0.034) ng/mL Total Protein 6.7 (6.3-8.2) g/dL Albumin 3.9 (3.5-5.0) g/dL Globulin 2.8 (1.7-4.1) g/dL Albumin/Globulin Ratio 1.4 (1.0-2.8) Urine RBC (0-5/HPF) Urine WBC (0-5/HPF) Ur Squamous Epith Cells (0-5/HPF) Urine Bacteria (None) Ur Culture Indicated? U Opiates 300ng/mL cut (Negative) Ur Oxycodone Screen (Negative) Urine Methadone Screen (Negative) Ur Barbiturates Screen (Negative) U Tricyclic Antidepress (Negative) Ur Phencyclidine Scrn (Negative) Ur Amphetamines Screen (Negative) U Methamphetamines Scrn (Negative) Ur MDMA Scrn (Ecstasy) (Negative) U Benzodiazepines Scrn (Negative) Urine Cocaine Screen (Negative) U Marijuana (THC) Screen (Negative) 10/03/22 10/03/22 Range/Units 15:08 15:08 WBC (4.5-11.0) X10^3/uL RBC (4.5-5.9) X10^6/uL Hgb (13.5-17.5) g/dL Hct (41-53) % MCV (80-100) fL MCH (26-34) PG MCHC (30-36) % RDW (11.6-14.8) % Plt Count (150-400) X10^3/uL Neut % (Auto) (50-75) % Lymph % (Auto) (25-40) % Stanley % (Auto) (3-14) % Eos % (Auto) (2-4) % Baso % (Auto) (0-2) % Neut # (Auto) (3783-9431) /uL Lymph # (Auto) (3770-1933) /uL Stanley # (Auto) (0-900) /uL Eos # (Auto) (0-450) /uL Baso # (Auto) (0-100) /uL PT (10.1-12.7) SECONDS INR (0.9-1.3) APTT (26-36) SECONDS Sodium (137-145) mmol/L Potassium (3.4-5.1) mmol/L Chloride (98-107) mmol/L Carbon Dioxide (22-32) mmol/L BUN (9-20) mg/dL Creatinine (0.66-1.25) mg/dL Estimated GFR (>60) mL/min BUN/Creatinine Ratio (6-22) Glucose (80-110) mg/dL Calcium (8.4-10.2) mg/dL Magnesium (1.6-2.3) mg/dL Total Bilirubin (0.2-1.3) mg/dL AST (17-59) IU/L ALT (<50) IU/L Alkaline Phosphatase (38-126) U/L Total Creatine Kinase (55-170) U/L Troponin I (0.01-0.034) ng/mL Total Protein (6.3-8.2) g/dL Albumin (3.5-5.0) g/dL Globulin (1.7-4.1) g/dL Albumin/Globulin Ratio (1.0-2.8) Urine RBC 0-1/hpf (0-5/HPF) Urine WBC None seen (0-5/HPF) Ur Squamous Epith Cells 0-1 /hpf (0-5/HPF) Urine Bacteria None seen (None) Ur Culture Indicated? Cult not indicated U Opiates 300ng/mL cut Negative (Negative) Ur Oxycodone Screen Negative (Negative) Urine Methadone Screen Negative (Negative) Ur Barbiturates Screen Negative (Negative) U Tricyclic Antidepress Negative (Negative) Ur Phencyclidine Scrn Negative (Negative) Ur Amphetamines Screen Negative (Negative) U Methamphetamines Scrn Negative (Negative) Ur MDMA Scrn (Ecstasy) Negative (Negative) U Benzodiazepines Scrn Negative (Negative) Urine Cocaine Screen Negative (Negative) U Marijuana (THC) Screen Negative (Negative) Urine Dip Bedside Urine Glucose Negative Bedside Urine Bilirubin - Negative Bedside Urine Ketone - Negative Urine Specific [place] 1.015 Bedside Urine Occult Blood + Bedside Urine pH 6.0 Bedside Urine Protein - Negative Bedside Urine Urobilinogen +/- 1mg Bedside Urine Nitrite - Negative Bedside Urine Leukocytes - Negative Esterase MDM Narrative Medical decision making narrative: Well-appearing patient with intermittent dizziness and blurred vision upon changing positions. It should be noted that patient did report left upper extremity numbness and weakness to triage, however he confirmed with me that this has been ongoing for years. NIH 0 on my assessment. Patient's description of symptoms appears to be orthostatic in nature. <Tonya Carranza, DO - Last Filed: 10/04/22 07:10> Lab Data Labs: Lab Results 10/03/22 10/03/22 10/03/22 Range/Units 14:35 14:35 14:35 WBC 5.5 (4.5-11.0) X10^3/uL RBC 4.14 L (4.5-5.9) X10^6/uL Hgb 13.5 (13.5-17.5) g/dL Hct 39.2 L (41-53) % MCV 94.8 (80-100) fL MCH 32.6 (26-34) PG MCHC 34.4 (30-36) % RDW 13.7 (11.6-14.8) % Plt Count 345 (150-400) X10^3/uL Neut % (Auto) 56.8 (50-75) % Lymph % (Auto) 33.5 (25-40) % Stanley % (Auto) 1.6 L (3-14) % Eos % (Auto) 6.1 H (2-4) % Baso % (Auto) 2.0 (0-2) % Neut # (Auto) 3100 (0932-2124) /uL Lymph # (Auto) 1800 (8091-7432) /uL Stanley # (Auto) 100 (0-900) /uL Eos # (Auto) 300 (0-450) /uL Baso # (Auto) 100 (0-100) /uL PT 12.6 (10.1-12.7) SECONDS INR 1.1 (0.9-1.3) APTT 30 (26-36) SECONDS Sodium 138 (137-145) mmol/L Potassium 4.1 (3.4-5.1) mmol/L Chloride 105 (98-107) mmol/L Carbon Dioxide 27 (22-32) mmol/L BUN 14 (9-20) mg/dL Creatinine 0.88 (0.66-1.25) mg/dL Estimated GFR > 60 (>60) mL/min BUN/Creatinine Ratio 15.9 (6-22) Glucose 113 H (80-110) mg/dL Calcium 9.2 (8.4-10.2) mg/dL Magnesium 2.1 (1.6-2.3) mg/dL Total Bilirubin 0.5 (0.2-1.3) mg/dL AST 17 (17-59) IU/L ALT 13 (<50) IU/L Alkaline Phosphatase 68 (38-126) U/L Total Creatine Kinase 30 L (55-170) U/L Troponin I < 0.012 (0.01-0.034) ng/mL Total Protein 6.7 (6.3-8.2) g/dL Albumin 3.9 (3.5-5.0) g/dL Globulin 2.8 (1.7-4.1) g/dL Albumin/Globulin Ratio 1.4 (1.0-2.8) Urine RBC (0-5/HPF) Urine WBC (0-5/HPF) Ur Squamous Epith Cells (0-5/HPF) Urine Bacteria (None) Ur Culture Indicated? U Opiates 300ng/mL cut (Negative) Ur Oxycodone Screen (Negative) Urine Methadone Screen (Negative) Ur Barbiturates Screen (Negative) U Tricyclic Antidepress (Negative) Ur Phencyclidine Scrn (Negative) Ur Amphetamines Screen (Negative) U Methamphetamines Scrn (Negative) Ur MDMA Scrn (Ecstasy) (Negative) U Benzodiazepines Scrn (Negative) Urine Cocaine Screen (Negative) U Marijuana (THC) Screen (Negative) 10/03/22 10/03/22 Range/Units 15:08 15:08 WBC (4.5-11.0) X10^3/uL RBC (4.5-5.9) X10^6/uL Hgb (13.5-17.5) g/dL Hct (41-53) % MCV (80-100) fL MCH (26-34) PG MCHC (30-36) % RDW (11.6-14.8) % Plt Count (150-400) X10^3/uL Neut % (Auto) (50-75) % Lymph % (Auto) (25-40) % Stanley % (Auto) (3-14) % Eos % (Auto) (2-4) % Baso % (Auto) (0-2) % Neut # (Auto) (2385-8001) /uL Lymph # (Auto) (3984-6005) /uL Stanley # (Auto) (0-900) /uL Eos # (Auto) (0-450) /uL Baso # (Auto) (0-100) /uL PT (10.1-12.7) SECONDS INR (0.9-1.3) APTT (26-36) SECONDS Sodium (137-145) mmol/L Potassium (3.4-5.1) mmol/L Chloride (98-107) mmol/L Carbon Dioxide (22-32) mmol/L BUN (9-20) mg/dL Creatinine (0.66-1.25) mg/dL Estimated GFR (>60) mL/min BUN/Creatinine Ratio (6-22) Glucose (80-110) mg/dL Calcium (8.4-10.2) mg/dL Magnesium (1.6-2.3) mg/dL Total Bilirubin (0.2-1.3) mg/dL AST (17-59) IU/L ALT (<50) IU/L Alkaline Phosphatase (38-126) U/L Total Creatine Kinase (55-170) U/L Troponin I (0.01-0.034) ng/mL Total Protein (6.3-8.2) g/dL Albumin (3.5-5.0) g/dL Globulin (1.7-4.1) g/dL Albumin/Globulin Ratio (1.0-2.8) Urine RBC 0-1/hpf (0-5/HPF) Urine WBC None seen (0-5/HPF) Ur Squamous Epith Cells 0-1 /hpf (0-5/HPF) Urine Bacteria None seen (None) Ur Culture Indicated? Cult not indicated U Opiates 300ng/mL cut Negative (Negative) Ur Oxycodone Screen Negative (Negative) Urine Methadone Screen Negative (Negative) Ur Barbiturates Screen Negative (Negative) U Tricyclic Antidepress Negative (Negative) Ur Phencyclidine Scrn Negative (Negative) Ur Amphetamines Screen Negative (Negative) U Methamphetamines Scrn Negative (Negative) Ur MDMA Scrn (Ecstasy) Negative (Negative) U Benzodiazepines Scrn Negative (Negative) Urine Cocaine Screen Negative (Negative) U Marijuana (THC) Screen Negative (Negative) Urine Dip Bedside Urine Glucose Negative Bedside Urine Bilirubin - Negative Bedside Urine Ketone - Negative Urine Specific [place] 1.015 Bedside Urine Occult Blood + Bedside Urine pH 6.0 Bedside Urine Protein - Negative Bedside Urine Urobilinogen +/- 1mg Bedside Urine Nitrite - Negative Bedside Urine Leukocytes - Negative Esterase Imaging Data CT scan - head: Radiologist's Impression: PROCEDURE:? CT HEAD/BRAIN WO CON ? INDICATIONS:? dizzy x 4 days ? TECHNIQUE:? Noncontrast 4.5 mm thick angled axial sections acquired from the foramen magnum to the vertex, with coronal and sagittal reformats.? For radiation dose reduction, the following was used:? automated exposure control, adjustment of mA and/or kV according to patient size.? ? COMPARISON:? [facility], MR, MR HEAD/BRAIN WO CON, 01/02/2018, 11:07.? [facility], CT, CT HEAD/BRAIN WO CON, 01/02/2018, 7:55. ? FINDINGS:? Image quality:? Excellent.? ? CSF spaces:? Basal cisterns are patent.? No extra-axial fluid collections.? The ventricles are symmetric in size and shape.? ? Brain:? No intracranial bleeds or masses.? There is cerebral volume loss for age, with resultant ventricular and sulcal prominence.? There are periventricular and deep white matter chronic small vessel ischemic changes.? There is intracranial internal carotid artery atherosclerosis.? ? Skull and face:? Calvarium and visualized facial bones appear intact, without suspicious lesions.? ? Sinuses:? Visualized sinuses and mastoids are clear.? IMPRESSION:? Unremarkable noncontrast head CT for age, stable from prior. ? ? Dictated by: Tyler Elam M.D. on 10/03/2022 at 14:32 ? Chest x-ray: Radiologist's Impression: PROCEDURE:? XR CHEST 1V ? INDICATIONS:? Possible stroke ? TECHNIQUE:? One view of the chest was acquired.? ? COMPARISON:? [facility], , CHEST 2 VIEW, 06/25/2016, 2:01. ? FINDINGS:? ? Surgical changes and devices:? None.? ? Lungs and pleura:? Right middle lung opacity in the perihilar region, new since prior.? No pleural effusions or pneumothorax.? ? Mediastinum:? Mediastinal contours appear normal.? Heart size is normal.? ? Bones and chest wall:? No suspicious bony lesions.? Overlying soft tissues appear unremarkable.? ? IMPRESSION:? Single AP view radiograph of the chest demonstrating dense opacity in the right mid lung.? Findings may represent mass versus infection. ? ? Dictated by: Michell Chahal M.D. on 10/03/2022 at 15:36 ? ? Approved by: Michell Chahal M.D. on 10/03/2022 at 15:40 ? ECG Data Interpretation: Sinus rhythm rate 81 RI interval 122 QRS 76 QTC 425 MDM Narrative Medical decision making narrative: Well-appearing patient with intermittent dizziness and blurred vision upon changing positions. It should be noted that patient did report left upper extremity numbness and weakness to triage, however he confirmed with me that this has been ongoing for years. NIH 0 on my assessment. Patient's description of symptoms appears to be orthostatic in nature. Dr. Carrnaza-received sign-out from Dr. Clay I have seen evaluated patient myself. He reports being noncompliant with aspirin atorvastatin and other medications but does take his nitroglycerin when he feels like he has chest pain. He is an avid smoker. He reports having TIAs multiple other evidence of arterial disease. Today he was having some left arm numbness but he reports that has been chronic ongoing for years it is not new today. He has NIH stroke scale of 0. He is no chest pain never had chest pain today. [place] slightly lightheaded but never passed out. He was given some IV fluids. Blood work has been reviewed and overall reassured. No evidence of anemia leukocytosis DAWIT electrolyte abnormality and a negative troponin. Head CT is negative chest x-ray is also negative he is anxious to get out of here. We had a long discussion about having a stroke a permanent disability and . He understands he is encouraged to stop smoking and to at least take aspirin 81 mg daily. Discharge Plan Departure Patient Disposition: Home Clinical Impression: Lightheaded Instructions: Orthostatic Hypotension, DI for Transient Ischemic Attack Activity Restrictions/Additional Instructions: *You have been diagnosed with lightheaded *What to do: You are at risk to have significant heart attack and/or stroke. I strongly recommend that you take your medications as you were supposed to. Please stay hydrated. Please stop smoking *Continue to take medications as directed Aspirin 81 mg daily *Follow up with your primary care provider in 2-3 days or call [phone] *Return to ER if you should have increasing chest pain shortness of breath dizziness lightheadedness palpitations or any new, worsening or concerning symptoms Prescriptions: No Action nitroglycerin [Nitrostat] 0.4 MG tablet, sublingual 0.4 mg Sublingual PRN Qty: 0 Patient Comments: USES 2 TO 3 X A YR. Flovent HFA 1 puff Inhalation DIRECTED Patient Comments: patient states he has but rarely uses. albuterol sulfate 90 mcg/actuation Hfa Aerosol Inhaler 1 puff Inhalation PRN PRN (Reason: Shortness Of Breath) cyclobenzaprine 5 mg Tablet 5 mg PO PRN PRN (Reason: MUSCLE SPASMS) Referrals: Opal Weiss MD [Primary Care Provider] - Stand Alone Forms: Patient Portal/API
[2022-10-03 15:10] LABS: Troponin I < 0.012 ng/mL (0.01-0.034)
[2022-10-03] MEDS: SODIUM CHLORIDE 0.9% 500 ML 1000 ML IV (15:35)
[2022-10-03 15:37] LABS: UR Morphine/Opiate cutoff 300 Negative (Negative); Ur Creatinine Normal (Normal); Ur Specific Gravity Normal (Normal); Urine Amphetamines Negative (Negative); Urine Barbiturates Negative (Negative); Urine Benzodiazepines Negative (Negative); Urine Cocaine Negative (Negative); Urine MDMA Negative (Negative); Urine Methadone Negative (Negative); Urine Methamphetamines Negative (Negative); Urine Oxycodone Negative (Negative); Urine Phencyclidine Negative (Negative); Urine Tetrahydrocannabinol Negative (Negative); Urine Tricyclic Antidepressant Negative (Negative); Urine pH Normal (Normal)
[2022-10-03 15:43] LABS: Bacteria Urine None Seen; RBC Urine 0-1/HPF (0-5/HPF); Squamous Epithelial Cell Urine 0-1 /HPF (0-5/HPF); WBC Urine None Seen (0-5/HPF)
[2022-10-03 15:44] LABS: Culture Indicated Urine Cult Not Indicated
[2022-10-03] MEDS: ASPIRIN 81 MG CHEW TAB 324 MG PO (17:49)
== END 2022-10-03 18:10 | disposition home or self-care (01) ==
PROVIDERS: Emergency Medicine; Emergency Provider Emergency Medicine; PCP Student in an Organized Health Care Education/Training Program
DX: R42 Dizziness and giddiness (principal); H53.8 Other visual disturbances
CPT/HCPCS: 36415; 70450; 71045; 80053; 80305; 81003; 81015; 82550; 83735; 84484; 85025; 85610; 85730; 93005; 96360; 96361; 99284; 99285

== ENCOUNTER → 2022-11-02 07:10 | Outpatient (CLI) | payer OTHER, MEDICAID, SELFPAY ==
[2022-11-02 08:17] LABS: Cholesterol 192 mg/dL (140-199); HDL Cholesterol 38 mg/dL (40-60); LDL Cholesterol Calculated 123 mg/dL (<100); Triglycerides 153 mg/dL (35-150)
[2022-11-02 08:44] LABS: Prostate Specific Antigen Scrn 1.62 ng/mL (0.1-4.0)
== END ==
PROVIDERS: PCP Student in an Organized Health Care Education/Training Program; Referring Provider Student in an Organized Health Care Education/Training Program; Visit Provider Student in an Organized Health Care Education/Training Program
DX: E78.5 Hyperlipidemia, unspecified (principal); Z12.5 Encounter for screening for malignant neoplasm of prostate
CPT/HCPCS: 36415; 80061; G0103

== ENCOUNTER 2023-05-19 10:38 | Emergency (ER) | payer OTHER, MEDICAID, SELFPAY ==
[2023-05-19] VITALS (14 sets, daily range): BP systolic 122–157; BP diastolic 57–68; PULSE 76–98; RESP 19–24; TEMP 36.2; O2SAT 93–95; BMI 19.0
--- NOTE | 2023-05-19 10:41 | DI.RAD.S_ITS ---
PROCEDURE: XR CHEST 1V INDICATIONS: Shortness of breath TECHNIQUE: One view of the chest was acquired. COMPARISON: [facility], , CHEST 2 VIEW, 06/25/2016, 2:01. [facility], , XR CHEST 1V, 10/03/2022, 14:35. FINDINGS: Surgical changes and devices: None. Lungs and pleura: There is complete opacification of the right hemithorax. The left lung appears clear. Mediastinum: Cardiac and mediastinal silhouettes are partially obscured, yet are regarded to be stable. Atherosclerotic calcification of the aortic arch is noted. Bones and chest wall: No suspicious bony lesions. Age-appropriate bony degenerative changes are seen. Overlying soft tissues appear unremarkable. IMPRESSION: Complete opacification of the right hemithorax, which is attributed to pleural effusion with atelectasis. - If clinically appropriate, please consider follow-up CT. Dictated by: Tyler Elam M.D. on 05/19/2023 at 10:32 Approved by: Tyler Elam M.D. on 05/19/2023 at 10:33
[2023-05-19] MEDS: ALBUTEROL/IPRATROPIUM 3 ML AMPUL INH (10:56)
[2023-05-19 10:59] LABS: Add Manual Diff / Slide Review NO; Basophils Absolute Auto 100 /uL (0-100); Basophils Percent Auto 1.4 % (0-2); Eosinophils Absolute Auto 300 /uL (0-450); Eosinophils Percent Auto 5.3 % (2-4); Hemoglobin 14.2 g/dL (13.5-17.5); Lymphocytes Absolute Auto 1100 /uL (1100-4500); Lymphocytes Percent Auto 18.3 % (25-40); Mean Corpuscular HGB Conc 33.7 % (30-36); Mean Corpuscular Hemoglobin 31.8 PG (26-34); Mean Corpuscular Volume 94.3 fL (80-100); Monocytes Absolute Auto 100 /uL (0-900); Monocytes Percent Auto 1.2 % (3-14); Neutrophils Absolute Auto 4300 /uL (1500-7000); Neutrophils Percent Auto 73.8 % (50-75); Platelet Count 408 X10^3/uL (150-400); Red Blood Cell Count 4.46 X10^6/uL (4.5-5.9); Red Cell Distribution Width 14.1 % (11.6-14.8); White Blood Cell Count 5.8 X10^3/uL (4.5-11.0)
[2023-05-19 11:06] LABS: HEMOLYSIS 16 (0-50); INR 1.1 (0.9-1.3); Prothrombin Time 12.8 SECONDS (9.4-12.5)
[2023-05-19 11:11] LABS: Alanine Aminotransferase 14 IU/L (<50); Albumin 3.7 g/dL (3.5-5.0); Albumin Globulin Ratio 1.2 (1.0-2.8); Alkaline Phosphatase 88 U/L (38-126); Aspartate Aminotransferase 19 IU/L (17-59); BUN Creatinine Ratio 16.4 (6-22); Bilirubin Total 0.9 mg/dL (0.2-1.3); Blood Urea Nitrogen 12 mg/dL (9-20); Calcium 9.1 mg/dL (8.4-10.2); Carbon Dioxide 27 mmol/L (22-32); Chloride 106 mmol/L (98-107); Estimated Glomerular Filt Rate > 60 mL/min (>60); Glucose 102 mg/dL (80-110); Potassium 4.4 mmol/L (3.4-5.1); Sodium 136 mmol/L (137-145); Total Protein 6.7 g/dL (6.3-8.2)
--- NOTE | 2023-05-19 11:13 | RT ---
pt ely dawn well, on room air with no distress noted.
[2023-05-19 11:15] LABS: Lactate (Lactic Acid) 1.3 mmol/L (0.7-2.1)
[2023-05-19 11:21] LABS: NT-proBNP (BNP-Adult 18+) 234 pg/mL (<125)
[2023-05-19 11:24] LABS: Troponin I < 0.012 ng/mL (0.01-0.034)
--- NOTE | 2023-05-19 11:31 | PATH_ITS ---
Note [facility] Accession Number: [id number] TESTS RESULT FLAG UNITS REF RANGE LAB Clinician Provided Cytology Information No. 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 THIS INTERPRETATION INCLUDES EVALUATION OF A CELL BLOCK. IMMUNOHISTOCHEMISTRY STUDIES PERFORMED; RESULTS WILL BE REPORTED AN ADDENDUM. COMMENT: On 05-26-23 at approximately 12:39 p.m., Dr. Yuridia Reyes left a message with cad drafter Grant Pena to convey to Dr. Jessica Lyle's care team that results are available to discuss. Office phone number provided. As part of routine quality systems technician, this case was also reviewed by Dr. Stefanie Simons, who agrees with the interpretation. Pathologist ICD10: 01 J91.0 Signed out by: Yuridia Reyes MD, Pathologist NPI- [id number] Performed by: Nitesh Mcclendon, Sweat Band Sewer ([facility]) Gross description: 01 60 CC, RED, CLOUDY RECEIVED: FRESH IN BLUE CAP CONTAINER.VO /VDU 05/22/2023 0715 Local FLAG LEGEND: L-Low Normal,H-High Normal,LL-Alert Low,HH-Alert High <-Panic Low,>-Panic High,A-Abnormal,AA-Critical Abnormal Performed at: 01 =Z [facility] [address] [place] [address], [place] [address] Lewis Chau MD, Performed at: 01 [facility] [address] [place] [address], [place], [place] [id number] MD Lewis Chau MD Phone: [phone]
--- NOTE | 2023-05-19 11:31 | DI.US.S_ITS ---
PROCEDURE: US THORACENTESIS INDICATIONS: DYSPNEA; RIGHT PLEURAL EFFUSION TECHNIQUE: The indications, alternatives, benefits, risks, and complications of the procedure were explained to the patient. Written informed consent was obtained and placed in the chart. The chest was examined sonographically, and an appropriate site was chosen for thoracentesis. The skin was prepared and draped in the usual sterile fashion, and 1% lidocaine was infiltrated from the skin down through the pleural surface. A 19-gauge catheter-covered needle was then introduced into the pleural space, the catheter was advanced and the needle was withdrawn, and thereafter pleural fluid was aspirated. The catheter was then removed and a dressing was applied. COMPARISON: [facility], CR, XR CHEST 1V, 05/19/2023, 10:47. [facility], CT, CT CHEST W CON, 05/19/2023, 13:00. FINDINGS: Access site: Right hemithorax. Needle: One-Step centesis catheter with introducer needle. Fluid volume and description: 1.5 L bloody fluid. Fluid sent for diagnostic testing: Yes, labs per ordering provider Medications: 1% lidocaine for local anaesthesia. Complications: None; no pneumothorax seen on subsequent chest CT. IMPRESSION: Successful ultrasound-guided thoracentesis. Approved by: Santi Hunter M.D. on 05/19/2023 at 13:30
--- NOTE | 2023-05-19 11:49 | ED_ITS ---
HPI - SOB/Dyspnea General Chief Complaint: Shortness of Breath/Dyspnea Stated Complaint: SOB- cant catch breath/ Time Seen by Provider: 05/19/23 10:48 Source: patient Mode of arrival: Ambulatory Limitations: no limitations History of Present Illness HPI Narrative: 72-year-old male with history of tobacco smoking for many years, complains of recent 2 weeks increasing shortness of breath over his usual baseline, with minimal activity, not feeling feverish, denies cough. Denies any swelling to his legs or abdomen, no increasing abdominal girth. He sometimes uses inhalers, not usually on oxygen at home. He denies history of tuberculosis, fungal infections of the lungs, denies known lung cancers. He has frequent chest pain for many years, denies any coronary vessel interventions, this pain has not changed in recent weeks, currently not present. Related Data Home Medications Medication Instructions Recorded Confirmed multivitamin (Multiple Vitamins 1 tab PO DAILY 11/01/22 05/19/23 tablet) Allergies Allergy/AdvReac Type Severity Reaction Status Date / Time lizabeth [LIZABETH] Allergy Unknown Verified 05/19/23 10:48 Review of Systems Constitutional Constitutional: Reports as per HPI Patient History Medical History (Updated 05/19/23 @ 14:29 by Dirk Arcos MD) Fractures History of angina Wears glasses Anxiety Stroke Lumbar disc disease Chronic back pain Cervical spine disease Measles Hearing loss Hemorrhoid Colon polyps Skin cancer Melanoma Cervical radiculitis Degenerative disc disease, lumbar Left carotid artery stenosis Squamous cell carcinoma in situ Rectal bleeding Tobacco use disorder PTSD (post-traumatic stress disorder) Depression COPD (chronic obstructive pulmonary disease) Diverticulitis BPH (benign prostatic hyperplasia) Claudication Hyperlipidemia TIA (transient ischemic attack) Carotid stenosis Surgical History (Updated 10/31/22 @ 20:03 by Brigette Teague) Anesthesia History of inguinal hernia repair, bilateral History of colectomy Hx of transurethral resection of prostate History of prostate biopsy Family History (Updated 11/02/22 @ 19:42 by rBigette Teague) Father History of heart disease Mother Lung cancer History of heart disease Sister Cancer Grandfather Cancer Grandmother History of heart disease Brother History of heart disease Brother COPD (chronic obstructive pulmonary disease) Hyperlipidemia Grandfather Cancer Grandmother History of heart disease Social History marital status: unmarried,single household members: none lives independently: Yes occupational status: other Smoking Status: Current every day smoker Tobacco: How many years used: 60 alcohol intake: never substance use type: does not use Smoking Status: Current every day smoker tobacco type: cigarettes Substance Use Type: does not use Exam Initial Vital Signs Initial Vital Signs: Vital Signs Temperature 97.2 F L 05/19/23 10:40 Pulse Rate 95 H 05/19/23 10:40 Respiratory Rate 24 05/19/23 10:40 Blood Pressure 157/68 H 05/19/23 10:40 Pulse Oximetry 93 05/19/23 10:40 Oxygen Delivery Method Room Air 05/19/23 10:40 Chest Chest: normal inspection of the chest Resp Effort & Inspection: normal respiratory effort Other: Diminished breath sounds right base, on percussion has dullness right base, left lung jefferson slight wheezing, speaking in full sentences status post SVN given after triage. Cardio Other: Regular rate and rhythm, no audible murmur GI Inspection: normal to inspection Auscultation: normal bowel sounds Rectal Exam: visual inspection normal Other: No tenderness on palpation, nondistended Neuro General: patient alert Cranial Nerves: CN's II-XI intact bilaterally Extrem General: normal to inspection Other: No lower extremity edema Psych Mental Status: mental status grossly normal Course Course Additional Information: Patient had successful right therapeutic thoracentesis approximately 1500 cc bloody appearing fluid by report, studies pending. Patient feels a little less short of breath. CT chest with IV contrast had been ordered, which will be performed postprocedure. Cytology and cell count Gram stain culture studies pending. Orders Ordered: Discontinued Medications Albuterol/Ipratropium (Albuterol/Ipratropium 3 Ml Ampul) 3 ml INH NOW ONE Stop: 05/19/23 10:49 Last Admin: 05/19/23 10:56 Dose: 3 ml Documented By: NL Reevaluation(s) Reevaluation #1: Lab testing unremarkable. Hemoglobin 14. Chest radiograph shows right large pleural effusion, IR ultrasound-guided right thoracentesis ordered, as well as studies for fluid, including cytology. CT chest will be performed postprocedure, to further evaluate for possible neoplastic underlying anatomy. Reevaluation #2: CT chest shows large mass right medial lung with obstruction of 3 main bronchi to the right lung, some retention of pulmonary secretions, high-grade constriction of the right pulmonary artery, right large pleural effusion, reported aspiration prior to CT scanning, no pneumothorax. Shotty adenopathy several large lymph nodes low neck and thoracic outlet, as well as mediastinal. Case details discussed with the patient, suspected mass, likely cancerous, pleural fluid cell cytology pending. We will need further workup that might include Oncology, pulmonology, surgery, biopsy of lymph nodes or masses. Will coordinate with PCP, as he is speaking full sentences, hemodynamically stable, no complication of the drainage procedure, improved. Reevaluation #3: PCP is Dr. Chawla, who is on maternity leave. Case discussed with cross covering provider Dr. Rangel, who will arrange outpatient Clinic appointment with their group and close follow-up. Return precautions discussed. Discharged home, improved. Vital Signs Vital signs: Vital Signs - 8 hr 05/19/23 10:40 05/19/23 10:42 05/19/23 10:43 Temperature 97.2 F L Pulse Rate 95 H 95 H 93 H Respiratory Rate 24 Blood Pressure 157/68 H Pulse Oximetry 93 94 95 Oxygen Delivery Method Room Air 05/19/23 10:43 05/19/23 11:00 05/19/23 11:00 Temperature Pulse Rate 98 H Respiratory Rate 24 Blood Pressure 157/68 H 126/60 Pulse Oximetry 95 Oxygen Delivery Method Room Air 05/19/23 11:00 05/19/23 11:30 05/19/23 11:30 Temperature Pulse Rate 85 82 Respiratory Rate 19 22 Blood Pressure 122/59 L Pulse Oximetry 94 94 Oxygen Delivery Method Room Air 05/19/23 12:00 05/19/23 12:25 05/19/23 12:25 Temperature Pulse Rate 81 88 Respiratory Rate 23 19 Blood Pressure 145/65 H Pulse Oximetry 95 93 Oxygen Delivery Method Room Air 05/19/23 12:30 05/19/23 12:30 Temperature Pulse Rate 81 Respiratory Rate 21 Blood Pressure 129/57 L Pulse Oximetry 94 Oxygen Delivery Method MDM - SOB/Dyspnea Lab Data 05/19/23 10:50 05/19/23 10:50 Labs: Lab Results 05/19/23 05/19/23 Range/Units 10:50 12:31 WBC 5.8 (4.5-11.0) X10^3/uL RBC 4.46 L (4.5-5.9) X10^6/uL Hgb 14.2 (13.5-17.5) g/dL Hct 42.0 (41-53) % MCV 94.3 (80-100) fL MCH 31.8 (26-34) PG MCHC 33.7 (30-36) % RDW 14.1 (11.6-14.8) % Plt Count 408 H (150-400) X10^3/uL Neut % (Auto) 73.8 (50-75) % Lymph % (Auto) 18.3 L (25-40) % Childress % (Auto) 1.2 L (3-14) % Eos % (Auto) 5.3 H (2-4) % Baso % (Auto) 1.4 (0-2) % Neut # (Auto) 4300 (3380-3512) /uL Lymph # (Auto) 1100 (4334-2884) /uL Childress # (Auto) 100 (0-900) /uL Eos # (Auto) 300 (0-450) /uL Baso # (Auto) 100 (0-100) /uL PT 12.8 H (9.4-12.5) SECONDS INR 1.1 (0.9-1.3) Sodium 136 L (137-145) mmol/L Potassium 4.4 (3.4-5.1) mmol/L Chloride 106 (98-107) mmol/L Carbon Dioxide 27 (22-32) mmol/L BUN 12 (9-20) mg/dL Creatinine 0.73 (0.66-1.25) mg/dL Estimated GFR > 60 (>60) mL/min BUN/Creatinine Ratio 16.4 (6-22) Glucose 102 (80-110) mg/dL Lactate 1.3 (0.7-2.1) mmol/L Calcium 9.1 (8.4-10.2) mg/dL Total Bilirubin 0.9 (0.2-1.3) mg/dL AST 19 (17-59) IU/L ALT 14 (<50) IU/L Alkaline Phosphatase 88 (38-126) U/L Troponin I < 0.012 (0.01-0.034) ng/mL NT-Pro-B Natriuret Pep 234 H (<125) pg/mL Total Protein 6.7 (6.3-8.2) g/dL Albumin 3.7 (3.5-5.0) g/dL Globulin 3.0 (1.7-4.1) g/dL Albumin/Globulin Ratio 1.2 (1.0-2.8) Fluid Color Red Fluid Appearance Turbid Fluid RBC [id number] /uL Fld Tot Nucleated Cell 1872 /uL Fluid Polynuclear WBCs 5 % Fluid Mononuclear WBCs 91 % Fluid Eosinophils 4 % Fluid Other Cells TNP Body Fluid Clot No clots present ECG Data Attestation: I personally reviewed and interpreted this ECG as follows: Interpretation: Normal sinus rhythm with ventricular response rate 91 beats per minute, some motion artifact present. No obvious ST segment elevation or depression changes. Normal axis. Normal voltage. Discharge Plan Departure Patient Disposition: Home Clinical Impression: Pleural effusion, Shortness of Breath Activity Restrictions/Additional Instructions: History of COPD, increasing shortness of breath, decreased breath sound on the right side and exam, on chest x-ray large amount of fluid on the right side, interventional Radiology was able to drain 1.5 L of blood-tinged fluid from the right side, follow-up study CT scan of the chest was done which was suspicious for multiple masses in the right lung. It is possible there could be a lung cancer causing the fluid in your right lung, which can be recurrent. Further workup will be needed, which might include biopsy of the lymph nodes, or lung tissue to rule out or confirm a diagnosis of cancer, to dictate further care. Cancer cells analysis was requested from the fluid that was sent to see if this provides any avenue for diagnosis. Culture was also sent. There is no mention of any pneumonia like changes, and you had no fever, no antibiotics for now. He tolerated the drainage procedure well. Case was discussed with your crosscover physician Dr. Hills, who was covering for your regular provider Dr. Walters who was on current maternity leave. She suggested they will contact you for further follow-up, to arrange consultations and further workup as needed. Return to the emergency department for any change worsening symptoms or any concerns prior to that visit. Continue to use your lung inhalers as needed. Appointment made with Dr. Lyle, on 06/07/2023, 9:00 a.m. Prescriptions: No Action multivitamin [Multiple Vitamins] Tablet 1 tab PO DAILY Referrals: Sandee Todd MD [Primary Care Provider] - Stand Alone Forms: Patient Portal/API
--- NOTE | 2023-05-19 11:57 | DI.CT.S_ITS ---
PROCEDURE: CT CHEST W CON INDICATIONS: large right pleural effusion, prior R hilar mass CXR 09/2022 TECHNIQUE: After the administration of intravenous contrast, 5 mm thick sections acquired from the pulmonary apices to the posterior costophrenic angles. 1 mm axial lung, 5 mm thick coronal and sagittal reformats and 7 mm axial MIP were acquired. For radiation dose reduction, the following was used: automated exposure control, adjustment of mA and/or kV according to patient size. COMPARISON: [facility], CR, XR CHEST 1V, 05/19/2023, 10:47. [facility], CR, XR CHEST 1V, 10/03/2022, 14:35. FINDINGS: Image quality: Diagnostic. Lower Neck: No enlarged lymph nodes on the left. On the right there is an increased number of small nodes and several mildly enlarged nodes at the thoracic inlet junction with the lower neck, and extending contiguously into the superior medial right mediastinum and the upper most aspect of the right axilla. Thyroid: No thyroid nodules which require sonographic follow up, per consensus guidelines. Axillae: No enlarged lymph nodes on the left and there is an increased number of small nodes there are rounded and mildly hyperenhancing at the upper margin of the right axilla in a similar pattern described above seen at the low neck and adjacent thoracic inlet and superior right mediastinum. Chest Wall: Unremarkable. Bones: Unremarkable. Lungs and Pleura: No pneumothorax or pleural effusions on the left. On the right the mass lesion seen by plain film imaging 10/03/22 has further enlarged on the right, encasing and obstructing the proximal airways to the right upper lobe, the right middle lobe and the right lower lobe. This mass is contiguous with lung parenchyma is opacified by retained pulmonary secretions, with overall dimensions 8.2 cm AP, 6.9 cm transverse and 8.2 cm craniocaudad. The mass also produces constriction against the right main pulmonary artery at the right hilum proximal to its bifurcation. There is a relatively subtle pattern of right-sided pleural thickening and enhancement with slight nodularity likely representing pleural carcinomatosis in this clinical circumstance. Heart: Heart size is normal. No pericardial effusion. Thoracic Vessels: The aorta and pulmonary arteries demonstrate normal size on the left. The pulmonary artery at the right margin of the right mediastinum is constricted by the large mass lesion that also obstructs adjacent airways.. Mediastinum and Lucie: Multiple small and moderately enlarged lymph nodes are seen within the right hilum and the subcarinal mediastinum and the middle mediastinum more superiorly. Many of these are confluent and malignant in appearance. Esophagus: No wall thickening. No hiatal hernia. Upper Abdomen: Visualized upper abdomen solid organs and bowel loops appear normal. IMPRESSION: Progression of a large mass lesion involving the right medial lung, with obstruction of the 3 main bronchi to the right lung, and producing retention of pulmonary secretions within the lung parenchyma peripheral to the mass, which also produces high-grade constriction of the right pulmonary artery just proximal to its bifurcation. Large right pleural effusion, reportedly aspirated just prior to the SC CT scan. No pneumothorax. High probability of pleural carcinomatosis given the pattern of pleural enhancement, thickening, and nodularity. Shoddy adenopathy and several moderately enlarged lymph nodes involving the junction of the low neck and thoracic inlet, the thoracic inlet, the superior contiguous right mediastinum, and the high margin of the right axilla. Additional mediastinal adenopathy is seen within the subcarinal space and within the middle mediastinum more superiorly. Dictated by: Michael Jah M.D. on 05/19/2023 at 13:22 Approved by: Michael Jha M.D. on 05/19/2023 at 13:34
--- NOTE | 2023-05-19 12:32 | PC.NURSE ---
1500 cc Blood fluid form thoracentesis.
[2023-05-19 13:51] LABS: Body Fluid Tot Nucleated Cells 1872 /uL
[2023-05-19 13:58] LABS: Body Fluid Color RED
[2023-05-19 13:59] LABS: Body Fluid Clotted? NO CLOTS PRESENT
[2023-05-19 14:00] LABS: Body Fluid Appearance TURBID
[2023-05-19 14:38] LABS: Eosinophils Body Fluid 4 %; Mononuclear WBC Body Fluid 91 %; Polynuclear WBC Body Fluid 5 %
== END 2023-05-19 14:40 | disposition home or self-care (01) ==
PROVIDERS: Emergency Medicine; Emergency Provider Emergency Medicine; PCP Student in an Organized Health Care Education/Training Program
DX: J90 Pleural effusion, not elsewhere classified (principal); R06.02 Shortness of breath
CPT/HCPCS: 32555; 36415; 71045; 71260; 80053; 83605; 83880; 84484; 85025; 85610; 87070; 87075; 87205; 89051; 93005; 93010; 94640; 99284; Q9967

== ENCOUNTER 2023-05-22 11:19 | Emergency (ER) | payer OTHER, MEDICAID, SELFPAY ==
[2023-05-22] VITALS (13 sets, daily range): BP systolic 111–164; BP diastolic 54–68; PULSE 74–104; RESP 18–24; TEMP 36.4; O2SAT 94–97; BMI 19.5
--- NOTE | 2023-05-22 11:44 | DI.RAD.S_ITS ---
PROCEDURE: XR CHEST 1V INDICATIONS: Shortness of breath, recent dx mass, recent thoracentisis TECHNIQUE: One view of the chest was acquired. COMPARISON: [facility], CT, CT CHEST W CON, 05/19/2023, 13:00. [facility], CR, XR CHEST 1V, 05/19/2023, 10:47. FINDINGS: Surgical changes and devices: None. Lungs and pleura: There is persistent significant opacification of the right hemithorax with mild improved aeration at the base. Additional areas of lucency are also identified in the hemithorax. Mediastinum: Mediastinal contours appear normal. Heart size is normal. Bones and chest wall: No suspicious bony lesions. Overlying soft tissues appear unremarkable. IMPRESSION: Persistent significant right hemithorax opacification with mild improved aeration at the base. Areas of additional lucency may represent partial improvement of previous consolidation/atelectasis. However, development of loculated fluid collection also cannot be excluded. Dictated by: Johanny Mahmood M.D. on 05/22/2023 at 12:12 Approved by: Johanny Mahmood M.D. on 05/22/2023 at 12:16
--- NOTE | 2023-05-22 11:58 | ED.SOB ---
HPI - SOB/Dyspnea General Chief Complaint: Shortness of Breath/Dyspnea Stated Complaint: SoB Time Seen by Provider: 05/22/23 11:57 Source: patient Mode of arrival: Ambulatory Limitations: no limitations History of Present Illness HPI Narrative: 72-year-old with history of COPD, chronic tobacco use, dyslipidemia, prior left carotid endarterectomy who presents with complaint of increased shortness of breath. Patient was seen on 05/19/2023 for shortness of breath with minimal activity and was found to have a large lung mass, pleural effusion which was tapped and drained at 1.5 L. Patient had some improvement. He states shortness of breath has been increasing since. He denies any pain, no syncope, no nausea or vomiting, no diaphoresis. No new swelling of extremities. Patient states no other GI or urinary symptoms other than some mild constipation. He states this morning was much worse he feels somewhat improved currently. He did ambulate into the department and drove himself here. He did use to have inhalers but ran out of them, he also ran out of his cholesterol medication some time ago and has not ever had it refilled. He states he has had prior hernia repair, colon surgery and left carotid endarterectomy. Quit smoking tobacco 2 weeks ago after a 58 years of tobacco use. No regular alcohol use, no recreational drugs. Patient was seen here on 05/19/2019, has follow-up set up with a primary care around the 06 of June for follow up regarding his new presumed lung cancer diagnosis. Related Data Home Medications Medication Instructions Recorded Confirmed multivitamin (Multiple Vitamins 1 tab PO DAILY 11/01/22 05/19/23 tablet) Allergies Allergy/AdvReac Type Severity Reaction Status Date / Time lizabeth [LIZABETH] Allergy Unknown Verified 05/19/23 10:48 Review of Systems Review of Systems ROS Unobtainable: All systems reviewed & are unremarkable except as noted in HPI and below Patient History Medical History Fractures History of angina Wears glasses Anxiety Stroke Lumbar disc disease Chronic back pain Cervical spine disease Measles Hearing loss Hemorrhoid Colon polyps Skin cancer Melanoma Cervical radiculitis Degenerative disc disease, lumbar Left carotid artery stenosis Squamous cell carcinoma in situ Rectal bleeding Tobacco use disorder PTSD (post-traumatic stress disorder) Depression COPD (chronic obstructive pulmonary disease) Diverticulitis BPH (benign prostatic hyperplasia) Claudication Hyperlipidemia TIA (transient ischemic attack) Carotid stenosis Surgical History Anesthesia History of inguinal hernia repair, bilateral History of colectomy Hx of transurethral resection of prostate History of prostate biopsy Family History Father History of heart disease Mother Lung cancer History of heart disease Sister Cancer Grandfather Cancer Grandmother History of heart disease Brother History of heart disease Brother COPD (chronic obstructive pulmonary disease) Hyperlipidemia Grandfather Cancer Grandmother History of heart disease Social History marital status: unmarried,single household members: none lives independently: Yes occupational status: other Smoking Status: Current every day smoker Tobacco: How many years used: 60 alcohol intake: never substance use type: does not use Smoking Status: Current every day smoker tobacco type: cigarettes Substance Use Type: does not use Exam Narrative Exam Narrative: GENERAL: Alert and oriented x three, thin elderly male in mild distress. HEENT: Head normocephalic, atraumatic, EOMI, pupils reactive, face symmetric, moist mucous membranes NECK: Supple, full range of motion CARDIOVASCULAR: Regular rate and rhythm without murmurs, rubs or gallops. No JVD. RESPIRATORY: Breath decreased on the right, present and normal on the left, no wheezes rales or rhonchi. No tachypnea. No accessory muscle use. Patient's speaks in full sentences. ABDOMEN: Soft, nontender. Normoactive bowel sounds all 4 quadrants. No guarding or rebound, rigidity, no mass : No CVA tenderness EXTREMITIES: Normal range of motion, no clubbing or edema. Neurovascularly intact NEUROLOGICAL: Cranial nerves II through XII grossly intact. Moving all extremities SKIN: Warm, dry, no petechiae, no rashes or lesions. Initial Vital Signs Initial Vital Signs: Vital Signs Pulse Rate 78 05/22/23 11:24 Pulse Oximetry 97 05/22/23 11:24 Course Orders Ordered: ED Orders 05/22/23 11:33 Consult to [employer] - Poker Manager Stat 05/22/23 11:44 XR chest 1V Stat RT Consult Eval and Treat NOW 05/22/23 12:15 Complete Blood Count AUTO DIFF Stat Comprehensive Metabolic Panel Stat Lactate (Lactic Acid) Stat NT-proBNP (BNP-Adult 18+) Stat Prothrombin Time INR Stat Troponin I Stat 05/22/23 12:58 EKG-12 Lead Stat Discontinued Medications Acetaminophen (Acetaminophen 325 Mg Tablet) 975 mg PO NOW ONE Stop: 05/22/23 14:47 Last Admin: 05/22/23 14:50 Dose: Not Given Documented By: ALLISON Albuterol/Ipratropium (Albuterol/Ipratropium 3 Ml Ampul) 6 ml INH NOW ONE Stop: 05/22/23 12:43 Last Admin: 05/22/23 12:46 Dose: 6 ml Documented By: STEVEN Vital Signs Vital signs: Vital Signs - 8 hr 05/22/23 11:24 05/22/23 11:25 05/22/23 11:25 Temperature Pulse Rate 78 78 Respiratory Rate Blood Pressure 164/68 H Pulse Oximetry 97 97 Oxygen Delivery Method Oxygen Flow Rate Fraction of Inspired Oxygen 05/22/23 11:29 05/22/23 11:30 05/22/23 11:31 Temperature 97.5 F L Pulse Rate 83 76 Respiratory Rate 22 Blood Pressure 164/68 H 114/54 L Pulse Oximetry 96 96 Oxygen Delivery Method Room Air Room Air Oxygen Flow Rate Fraction of Inspired Oxygen 05/22/23 11:31 05/22/23 12:00 05/22/23 12:00 Temperature Pulse Rate 96 H 79 Respiratory Rate Blood Pressure 133/63 Pulse Oximetry 96 96 Oxygen Delivery Method Oxygen Flow Rate Fraction of Inspired Oxygen 05/22/23 12:22 05/22/23 12:22 05/22/23 12:23 Temperature Pulse Rate 74 104 H Respiratory Rate Blood Pressure 135/59 L Pulse Oximetry 96 94 Oxygen Delivery Method Oxygen Flow Rate Fraction of Inspired Oxygen 05/22/23 12:30 05/22/23 12:30 05/22/23 12:46 Temperature Pulse Rate 75 74 Respiratory Rate 20 18 Blood Pressure 132/63 Pulse Oximetry 96 96 Oxygen Delivery Method Room Air Oxygen Flow Rate 0 Fraction of Inspired Oxygen 21 05/22/23 13:00 05/22/23 13:00 05/22/23 13:30 Temperature Pulse Rate 80 Respiratory Rate 20 Blood Pressure 124/60 111/54 L Pulse Oximetry 96 Oxygen Delivery Method Room Air Oxygen Flow Rate Fraction of Inspired Oxygen 05/22/23 13:30 05/22/23 14:00 05/22/23 14:00 Temperature Pulse Rate 83 88 Respiratory Rate 22 24 Blood Pressure 119/59 L Pulse Oximetry 95 96 Oxygen Delivery Method Oxygen Flow Rate Fraction of Inspired Oxygen MDM - SOB/Dyspnea Lab Data 05/22/23 12:15 05/22/23 12:15 Labs: Lab Results 05/22/23 Range/Units 12:15 WBC 4.9 (4.5-11.0) X10^3/uL RBC 4.41 L (4.5-5.9) X10^6/uL Hgb 14.0 (13.5-17.5) g/dL Hct 41.9 (41-53) % MCV 95.1 (80-100) fL MCH 31.8 (26-34) PG MCHC 33.4 (30-36) % RDW 14.0 (11.6-14.8) % Plt Count 432 H (150-400) X10^3/uL Neut % (Auto) 67.4 (50-75) % Lymph % (Auto) 18.6 L (25-40) % Monroe % (Auto) 1.6 L (3-14) % Eos % (Auto) 10.9 H (2-4) % Baso % (Auto) 1.5 (0-2) % Neut # (Auto) 3300 (6089-4258) /uL Lymph # (Auto) 900 L (8613-1339) /uL Monroe # (Auto) 100 (0-900) /uL Eos # (Auto) 500 H (0-450) /uL Baso # (Auto) 100 (0-100) /uL PT 13.0 H (9.4-12.5) SECONDS INR 1.1 (0.9-1.3) Sodium 138 (137-145) mmol/L Potassium 4.3 (3.4-5.1) mmol/L Chloride 108 H (98-107) mmol/L Carbon Dioxide 27 (22-32) mmol/L BUN 11 (9-20) mg/dL Creatinine 0.82 (0.66-1.25) mg/dL Estimated GFR > 60 (>60) mL/min BUN/Creatinine Ratio 13.4 (6-22) Glucose 107 (80-110) mg/dL Lactate 1.0 (0.7-2.1) mmol/L Calcium 9.1 (8.4-10.2) mg/dL Total Bilirubin 0.5 (0.2-1.3) mg/dL AST 13 L (17-59) IU/L ALT 9 (<50) IU/L Alkaline Phosphatase 74 (38-126) U/L Troponin I < 0.012 (0.01-0.034) ng/mL NT-Pro-B Natriuret Pep 125 H (<125) pg/mL Total Protein 6.4 (6.3-8.2) g/dL Albumin 3.3 L (3.5-5.0) g/dL Globulin 3.1 (1.7-4.1) g/dL Albumin/Globulin Ratio 1.1 (1.0-2.8) Imaging Data Chest x-ray: Radiologist's Impression: Otf Nelson??72??M??1950 ? Allergy/Adv: lizabeth Close Chest X-Ray (Signed) Johanny Mahmood - 05/22/[address] (Signed) Michael Jha - 05/19/23 Thoracentesis Ultrasound (Signed) Santi Hunter - 05/19/23 Chest X-Ray (Signed) Tyler Elam - 05/19/[address] (Signed) Tyler Elam - 10/03/22 Chest X-Ray (Signed) Michell Chahal - 10/03/22 Telemetry Strips 09/04/20 Brain MRI (Signed) Michael Jha - 01/02/[address] (Signed) Michael Jha - 01/02/18 Launch?Image [address] [address] XRay Report Signed Patient: Otf Nelson MR#: [id number] : 1950 Acct:[id number] Age/Sex: 72 / M Date of Service: 05/22/23 Loc: ED Accession Number: [id number] Procedure: XR chest 1V Ordering Provider: Ida Lutz D.O. PROCEDURE: XR CHEST 1V INDICATIONS: Shortness of breath, recent dx mass, recent thoracentisis TECHNIQUE: One view of the chest was acquired. COMPARISON: [facility], CT, CT CHEST W CON, 05/19/2023, 13:00. [facility], CR, XR CHEST 1V, 05/19/2023, 10:47. FINDINGS: Surgical changes and devices: None. Lungs and pleura: There is persistent significant opacification of the right hemithorax with mild improved aeration at the base. Additional areas of lucency are also identified in the hemithorax. Mediastinum: Mediastinal contours appear normal. Heart size is normal. Bones and chest wall: No suspicious bony lesions. Overlying soft tissues appear unremarkable. IMPRESSION: Persistent significant right hemithorax opacification with mild improved aeration at the base. Areas of additional lucency may represent partial improvement of previous consolidation/atelectasis. However, development of loculated fluid collection also cannot be excluded. Dictated by: Johanny Mahmood M.D. on 05/22/2023 at 12:12 Approved by: Johanny Mahmood M.D. on 05/22/2023 at 12:16 ECG Data Attestation: I personally reviewed and interpreted this ECG as follows: Prior ECG tracings: available for review Interpretation: Sinus rhythm short GA, rate of 76 GA 108 QRS 86 QTC [address] No acute ST changes appreciated. MDM Narrative Medical decision making narrative: Patient has presumed lung cancer has a known mass found on CT with pleural effusion on the 5th had thoracentesis 1.5 L of bloody fluid drained. Patient is not tachypneic, 96% on room air with ambulation 2 times around the department drops to 94% at the lowest heart rate maximum is 104. Patient does not appear to be in significant distress. Labs show white count of 4.9 hemoglobin of 14 platelets of 432. INR is 1.1, electrolytes are appropriate except for chloride of 108 normal renal function, BUN, negative lactate, normal LFTs except for AST of 13 BNP of 125 and negative troponin. Chest x-ray shows persistent significant right hemithorax opacification mild improved aeration of the base additional area of lucency may represent partial improvement however development of loculated fluid collection can not be excluded. EKG sinus rhythm no acute ST changes appreciated. Spoke with [employer] about potential resources, was given contact for resources in the community as well as set up with the community airline managerial supervisor program. Patient had asked about admission but does not meet any criteria, he is not hypoxic able to ambulate without issue I would not repeat thoracentesis today but discussed he may need in the future. I did speak with Oncology to help facilitate follow-up. Spoke with Dr. Rob at [facility] with Oncology he is happy to see the patient. Asked the patient call the office and took his name. Reached out to primary care, spoke with Dr. Ward who was covering for Dr. Payan. He will have the office reach out to the patient and have him seen in the office in next 2 or 3 days so they can work on referrals and follow-up. Discharge Plan Departure Patient Disposition: Home Clinical Impression: Mass of right lung, Pleural effusion Activity Restrictions/Additional Instructions: Follow up with Oncology, I spoke with Dr. Rob today they are happy to see you. Please call the contact information today or tomorrow below to set up an appointment. I also spoke with your primary care team to help faciliate referral. Please use the resources from our social science analyst today. Please return for increasing chest pain, shortness of breath, lightheadedness or passing out, increasing swelling of extremities, coughing up blood or other new or concerning changes. Prescriptions: No Action multivitamin [Multiple Vitamins] Tablet 1 tab PO DAILY Referrals: Sandee Payan MD [Primary Care Provider] - Mitchell Rob MD [Physician] - Stand Alone Forms: Patient Portal/API
[2023-05-22 12:26] LABS: Add Manual Diff / Slide Review NO; Basophils Absolute Auto 100 /uL (0-100); Basophils Percent Auto 1.5 % (0-2); Eosinophils Absolute Auto 500 /uL (0-450); Eosinophils Percent Auto 10.9 % (2-4); Hematocrit 41.9 % (41-53); Lymphocytes Absolute Auto 900 /uL (1100-4500); Lymphocytes Percent Auto 18.6 % (25-40); Mean Corpuscular HGB Conc 33.4 % (30-36); Mean Corpuscular Hemoglobin 31.8 PG (26-34); Mean Corpuscular Volume 95.1 fL (80-100); Monocytes Absolute Auto 100 /uL (0-900); Monocytes Percent Auto 1.6 % (3-14); Neutrophils Absolute Auto 3300 /uL (1500-7000); Neutrophils Percent Auto 67.4 % (50-75); Platelet Count 432 X10^3/uL (150-400); Red Blood Cell Count 4.41 X10^6/uL (4.5-5.9); White Blood Cell Count 4.9 X10^3/uL (4.5-11.0)
[2023-05-22 12:32] LABS: HEMOLYSIS < 15 (0-50); INR 1.1 (0.9-1.3)
[2023-05-22 12:37] LABS: Alanine Aminotransferase 9 IU/L (<50); Albumin 3.3 g/dL (3.5-5.0); Albumin Globulin Ratio 1.1 (1.0-2.8); Alkaline Phosphatase 74 U/L (38-126); Aspartate Aminotransferase 13 IU/L (17-59); BUN Creatinine Ratio 13.4 (6-22); Bilirubin Total 0.5 mg/dL (0.2-1.3); Blood Urea Nitrogen 11 mg/dL (9-20); Calcium 9.1 mg/dL (8.4-10.2); Carbon Dioxide 27 mmol/L (22-32); Chloride 108 mmol/L (98-107); Estimated Glomerular Filt Rate > 60 mL/min (>60); Globulin 3.1 g/dL (1.7-4.1); Glucose 107 mg/dL (80-110); Potassium 4.3 mmol/L (3.4-5.1); Sodium 138 mmol/L (137-145); Total Protein 6.4 g/dL (6.3-8.2)
[2023-05-22] MEDS: ALBUTEROL/IPRATROPIUM 3 ML AMPUL 6 ML INH (12:46)
[2023-05-22 12:52] LABS: NT-proBNP (BNP-Adult 18+) 125 pg/mL (<125); Troponin I < 0.012 ng/mL (0.01-0.034)
--- NOTE | 2023-05-22 15:36 | CM.SWNOTE ---
ED CLAY PROCESSING LABOURER Assessment Pt is a 72 year old M, resident of [place], who presented with shortness of breath. Pt was previously seen at the ED on 05/18 where he had a thoracentesis completed. CLAY PROCESSING LABOURER entered room and introduced self/role. Pt was found lying in bed, alert and cooperative, while eating lunch. Pt confirmed that he recently returned from [place], [place] where he lived during the winter months and is currently living in a travel trailer on his friend's property in [place]. Pt is okay with current living situations but is not able to utilize electricity in the trailer due to short circuiting the breaker on the property when he does; he is unable to utilize the heater or stove in the trailer, making it uncomfortable for him to stay there currently. Pt explained he drives his own vehicle and is able to get around down to appointments if necessary. Pt denied any connection to any resources in the community currently. Pt confirmed that his main goal is to obtain an apartment so he does not have to relocate according to the seasons. Pt explained he was granted two Section 8 vouchers in the past and has not been able to use it because he could never find a landlord who would accept it. Pt explained he has a fixed income of $1000 from disability and would like to work on obtaining subsidized housing. CLAY PROCESSING LABOURER provided pt with community resource list with highlighted agencies/times in which hot meals are delivered as pt endorsed being able to transport to various locations for meals. CLAY PROCESSING LABOURER referred pt to Community [employer], Corbin Garcia, for follow up services within the community which pt consented and appreciated. Plan: Pt to discharge home with follow up appointments with oncology and PCP. CARLOS Cevallos
== END 2023-05-22 14:51 | disposition home or self-care (01) ==
PROVIDERS: Emergency Provider Emergency Medicine; PCP Student in an Organized Health Care Education/Training Program
DX: J90 Pleural effusion, not elsewhere classified (principal); R91.8 Other nonspecific abnormal finding of lung field; R07.9 Chest pain, unspecified
CPT/HCPCS: 36415; 71045; 80053; 83605; 83880; 84484; 85025; 85610; 93005; 93010; 99284